=== PATIENT | female | born 1950 | race Caucasian/White ===

== ENCOUNTER 2019-06-04 18:24 | Inpatient (IN) | payer OTHER, MEDICAID ==
[~2019-06-04] VITALS: Ht 162.6 cm; Wt 71.7 kg
[2019-06-04 18:30] VITALS: BP_SYST 122
[2019-06-04] MEDS ORDERED: OMEG-47 PO (19:24)
[2019-06-04] MEDS ORDERED: ACET-2634 PO (19:24)
[2019-06-04] MEDS ORDERED: ACET-2165 PO (19:24)
[2019-06-04] MEDS ORDERED: MULT-1117 PO (19:24)
[2019-06-04] MEDS ORDERED: NA P133E41 RC (19:24)
[2019-06-04] MEDS ORDERED: CLON1TAB12 PO (19:24)
[2019-06-04] MEDS ORDERED: BISA-79 RC (19:24)
[2019-06-04] MEDS ORDERED: INSU100V7 SUBCUT (19:24)
[2019-06-04] MEDS ORDERED: CLOZ200T PO (19:24)
[2019-06-04] MEDS ORDERED: CRAN450C PO (19:24)
[2019-06-04] MEDS ORDERED: MOM PO (19:24)
[2019-06-04 19:42] LABS: HEMOGLOBIN 10.7 g/dL (12.0-16.0); RED CELL DISTRIBUTION WIDTH 17.2 % (9.0-15.0)
[2019-06-04 19:47] LABS: HEMATOCRIT 31.9 % (36-48); MEAN CORPUSCULAR HEMOGLOBIN 28 pg (27-31); MEAN CORPUSCULAR HGB CONC 34 % (32-36); MEAN CORPUSCULAR VOLUME 83 fL (79.0-98.0); PLATELET COUNT (AUTO) 415 K/uL (130-430); RED BLOOD CELL COUNT(AUTO) 3.83 MIL/uL (4.2-6.2); WHITE BLOOD COUNT (AUTO) 10.1 K/uL (4.8-10.8)
[2019-06-04 19:48] LABS: INR 1.1 (0.8-1.2); PROTHROMBIN TIME 10.7 SECS (9.5-12.5)
[2019-06-04 19:51] LABS: CALCIUM 8.8 mg/dL (8.4-11.0); CREATININE 0.58 mg/dL (0.55-1.30); POTASSIUM 3.4 mmol/L (3.5-5.1)
[2019-06-04 19:56] LABS: ALBUMIN 2.3 g/dL (3.4-4.8); TOTAL BILIRUBIN 8.6 mg/dL (0.0-1.0)
[2019-06-04 20:14] LABS: BAND % (MANUAL) 1 % (0-6)
[2019-06-04 20:15] LABS: BASOPHILS % (MANUAL) 0 % (0-2); EOSINOPHILS % (MANUAL) 1 % (0-7); LYMPHOCYTES % (MANUAL) 12 % (20-46); MONOCYTES % (MANUAL) 3 % (0-11)
[2019-06-04 20:20] LABS: BILIRUBIN,URINE 2+ (NEGATIVE); BLOOD, URINE NEGATIVE (NEGATIVE); CLARITY/URINE CLEAR (CLEAR); GLUCOSE,URINE NEGATIVE (NEGATIVE); KETONES,URINE NEGATIVE (NEGATIVE); LEUKOCYTE ESTERASE ,URINE NEGATIVE (NEGATIVE); NITRITE, URINE NEGATIVE (NEGATIVE); PH,URINE 6.5 (5.0-8.0); PROTEIN URINE NEGATIVE (NEGATIVE); UROBILINOGEN,URINE 0.2 (0.2-1.0)
[2019-06-04 20:35] LABS: COLOR,URINE AMBER (YELLOW)
[2019-06-04 20:37] LABS: BACTERIA,URINE FEW /HPF (None Seen); MUCUS,URINE None Seen /LPF (None Seen); RBC,URINE NONE SEEN /HPF (0-3); WBC,URINE 0-3 /HPF (0-3)
[2019-06-04 23:19] VITALS: BP_SYST 115
[2019-06-05] VITALS: BP_SYST 115
[2019-06-05] MEDS: 0.45% NACL 1,000 ML IV SCH ×2 (02:57→23:24)
[2019-06-05] MEDS: cefTRIAXone 1 GM IVPB PREMIX 50 ML IV SCH (03:22)
[2019-06-05] MEDS ORDERED: cefTRIAXone 1 GM IVPB PREMIX 50 ML IV ONE (03:25)
[2019-06-05 06:55] LABS: HEMATOCRIT 31.5 % (36-48); HEMOGLOBIN 10.8 g/dL (12.0-16.0); MEAN CORPUSCULAR HEMOGLOBIN 29 pg (27-31); MEAN CORPUSCULAR HGB CONC 34 % (32-36); MEAN CORPUSCULAR VOLUME 83 fL (79.0-98.0); PLATELET COUNT (AUTO) 413 K/uL (130-430); RED BLOOD CELL COUNT(AUTO) 3.79 MIL/uL (4.2-6.2); RED CELL DISTRIBUTION WIDTH 17.5 % (9.0-15.0)
[2019-06-05 06:59] LABS: CREATININE 0.53 mg/dL (0.55-1.30); POTASSIUM 3.5 mmol/L (3.5-5.1)
[2019-06-05 07:00] LABS: ALBUMIN 2.1 g/dL (3.4-4.8)
[2019-06-05 07:42] LABS: WHITE BLOOD COUNT (AUTO) 8.7 K/uL (4.8-10.8)
[2019-06-05 09:35] VITALS: BP_SYST 110
[2019-06-05 11:45] LABS: BAND % (MANUAL) 0 % (0-6)
[2019-06-05 11:46] LABS: BASOPHILS % (MANUAL) 0 % (0-2); EOSINOPHILS % (MANUAL) 5 % (0-7); MONOCYTES % (MANUAL) 23 % (0-11)
[2019-06-05 11:47] LABS: ATYPICAL LYMPHOCYTES % 10 % (0-0); LYMPHOCYTES % (MANUAL) 50 % (20-46)
[2019-06-05] MEDS ORDERED: DIATR MEGLU/DIATRIZ SOD 30 ML SOLUTION PO ONE (12:21)
[2019-06-05 12:29] VITALS: BP_SYST 115
[2019-06-05] MEDS ORDERED: IOHEXOL 100 ML IV ONE (15:03)
[2019-06-05 16:03] VITALS: BP_SYST 131
[2019-06-05 20:10] VITALS: BP_SYST 102
[2019-06-06] MEDS: ONDANSETRON HCL 4 MG/2 ML VIAL IVP PRN ×3 (01:24→23:17)
[2019-06-06] MEDS ORDERED: cefTRIAXone 1 GM VIAL ONE (02:37)
[2019-06-06] MEDS: cefTRIAXone 1 GM IVPB PREMIX 50 ML IV SCH (02:44)
[2019-06-06 07:19] LABS: HEMATOCRIT 33.3 % (36-48); HEMOGLOBIN 11.1 g/dL (12.0-16.0); MEAN CORPUSCULAR HEMOGLOBIN 28 pg (27-31); MEAN CORPUSCULAR HGB CONC 33 % (32-36); MEAN CORPUSCULAR VOLUME 83 fL (79.0-98.0); PLATELET COUNT (AUTO) 438 K/uL (130-430); RED BLOOD CELL COUNT(AUTO) 3.99 MIL/uL (4.2-6.2); RED CELL DISTRIBUTION WIDTH 17.1 % (9.0-15.0)
[2019-06-06 07:20] LABS: INR 1.2 (0.8-1.2)
[2019-06-06 07:45] LABS: ALANINE AMINOTRANSFERASE 141 U/L (12-78); ALBUMIN 2.2 g/dL (3.4-4.8); ANION GAP 11 (5-15); ASPARTATE AMINOTRANSFERASE 117 U/L (10-37); CALCIUM 8.8 mg/dL (8.4-11.0); CHLORIDE 99 mmol/L (98-107); CREATININE 0.49 mg/dL (0.55-1.30); GLUCOSE 135 mg/dL (70-99); LIPASE 128 U/L (73-393); POTASSIUM 3.5 mmol/L (3.5-5.1); SODIUM SERUM 133 mmol/L (136-145); TOTAL BILIRUBIN 10.2 mg/dL (0.0-1.0); UREA NITROGEN, BLOOD 18 mg/dL (8-21)
[2019-06-06 07:46] LABS: ACETAMINOPHEN < 1 ug/mL (1-30); GFR AFRICAN AMERICAN 161 mL/min (>90)
[2019-06-06 07:50] VITALS: BP_SYST 113
[2019-06-06 11:12] LABS: ATYPICAL LYMPHOCYTES % 2 % (0-0); BAND % (MANUAL) 0 % (0-6); BASOPHILS % (MANUAL) 0 % (0-2); EOSINOPHILS % (MANUAL) 1 % (0-7); LYMPHOCYTES % (MANUAL) 52 % (20-46); MONOCYTES % (MANUAL) 15 % (0-11)
[2019-06-06 11:44] VITALS: BP_SYST 112
[2019-06-06 16:00] VITALS: BP_SYST 131
[2019-06-06] MEDS ORDERED: MILK OF MAGNESIA 30 ML UDC PO PRN (19:00)
[2019-06-06] MEDS ORDERED: ACETAMINOPHEN 325 MG TABLET PO PRN (19:00)
[2019-06-06] MEDS ORDERED: ACETAMINOPHEN 500 MG TABLET PO PRN (19:00)
[2019-06-06] MEDS ORDERED: BISACODYL 5 MG TABLET.DR (DULCOLAX) PO PRN (19:00)
[2019-06-06 19:47] VITALS: BP_SYST 90
[2019-06-06 21:00] VITALS: BP_SYST 127
[2019-06-06] MEDS ORDERED: CLOZAPINE PO SCH (21:00)
[2019-06-06] MEDS ORDERED: NON-FORMULARY MEDICATION (Cranberry Fruit Concentrate (Cranberry) 450 MG) PO SCH (21:00)
[2019-06-06] MEDS: 0.45% NACL 1,000 ML IV SCH (21:39)
[2019-06-06] MEDS: clonazePAM 0.5 MG TABLET PO SCH (21:58)
[2019-06-06] MEDS ORDERED: MAGNESIUM CITRATE 300 ML ORAL SOLUTION PO SCH (22:00)
[2019-06-06] MEDS ORDERED: KCL 20 mEq in D5/0.45NS 1000mL 1,000 ML IV SCH (22:30)
[2019-06-07] VITALS: BP_SYST 129
[2019-06-07] MEDS: cefTRIAXone 1 GM IVPB PREMIX 50 ML IV SCH ×2 (01:01→23:45)
[2019-06-07 04:00] VITALS: BP_SYST 138
[2019-06-07] MEDS ORDERED: cefTRIAXone 1 GM VIAL ONE (04:46)
[2019-06-07 07:30] LABS: ALBUMIN 2.1 g/dL (3.4-4.8); CALCIUM 8.8 mg/dL (8.4-11.0); CREATININE 0.44 mg/dL (0.55-1.30); POTASSIUM 3.3 mmol/L (3.5-5.1); TOTAL BILIRUBIN 11.1 mg/dL (0.0-1.0)
[2019-06-07 07:32] LABS: HEMATOCRIT 31.3 % (36-48); HEMOGLOBIN 10.7 g/dL (12.0-16.0); MEAN CORPUSCULAR HEMOGLOBIN 28 pg (27-31); MEAN CORPUSCULAR HGB CONC 34 % (32-36); MEAN CORPUSCULAR VOLUME 83 fL (79.0-98.0); PLATELET COUNT (AUTO) 405 K/uL (130-430); RED BLOOD CELL COUNT(AUTO) 3.79 MIL/uL (4.2-6.2); RED CELL DISTRIBUTION WIDTH 17.2 % (9.0-15.0)
[2019-06-07 08:08] LABS: WHITE BLOOD COUNT (AUTO) 8.7 K/uL (4.8-10.8)
[2019-06-07 09:02] VITALS: BP_SYST 126
[2019-06-07 09:36] LABS: ATYPICAL LYMPHOCYTES % 5 % (0-0); BAND % (MANUAL) 0 % (0-6); BASOPHILS % (MANUAL) 0 % (0-2); EOSINOPHILS % (MANUAL) 2 % (0-7); LYMPHOCYTES % (MANUAL) 20 % (20-46); MONOCYTES % (MANUAL) 8 % (0-11)
[2019-06-07 12:56] VITALS: BP_SYST 107
[2019-06-07] MEDS: MULTIVITAMINS TAB 1 TABLET PO SCH (16:01)
[2019-06-07] MEDS: clonazePAM 0.5 MG TABLET PO SCH ×2 (16:01→21:04)
[2019-06-07] MEDS: OMEGA-3/DHA/EPA/FISH OIL 1 GM CAPSULE PO SCH (16:01)
[2019-06-07 16:51] VITALS: BP_SYST 116
[2019-06-07 20:00] VITALS: BP_SYST 121
[2019-06-07] MEDS: 0.45% NACL 1,000 ML IV SCH (21:04)
[2019-06-07] MEDS ORDERED: cefTRIAXone 1 GM IVPB PREMIX 50 ML IV ONE (23:39)
[2019-06-08 00:06] VITALS: BP_SYST 136
[2019-06-08 03:06] LABS: HEPATITIS A AB, IgM Negative (Negative); HEPATITIS B CORE AB, IgM Negative (Negative); HEPATITIS B SURFACE AG Negative (Negative)
[2019-06-08 07:31] LABS: INR 1.1 (0.8-1.2); PROTHROMBIN TIME 11.4 SECS (9.5-12.5)
[2019-06-08 07:45] LABS: ALBUMIN 2.1 g/dL (3.4-4.8); CALCIUM 8.5 mg/dL (8.4-11.0); CREATININE 0.44 mg/dL (0.55-1.30); POTASSIUM 3.6 mmol/L (3.5-5.1); TOTAL BILIRUBIN 10.1 mg/dL (0.0-1.0)
[2019-06-08 08:00] VITALS: BP_SYST 111
[2019-06-08 08:06] LABS: FERRITIN 61 ng/mL (15-150)
[2019-06-08 08:22] LABS: HEMOGLOBIN 10.5 g/dL (12.0-16.0); MEAN CORPUSCULAR HEMOGLOBIN 27 pg (27-31); MEAN CORPUSCULAR HGB CONC 33 % (32-36); MEAN CORPUSCULAR VOLUME 83 fL (79.0-98.0); PLATELET COUNT (AUTO) 401 K/uL (130-430); RED BLOOD CELL COUNT(AUTO) 3.85 MIL/uL (4.2-6.2); RED CELL DISTRIBUTION WIDTH 17.5 % (9.0-15.0)
[2019-06-08 08:49] LABS: WHITE BLOOD COUNT (AUTO) 7.5 K/uL (4.8-10.8)
[2019-06-08] MEDS: clonazePAM 0.5 MG TABLET PO SCH ×2 (09:00→21:05)
[2019-06-08] MEDS: 0.45% NACL 1,000 ML IV SCH (09:00)
[2019-06-08 11:08] LABS: BAND % (MANUAL) 3 % (0-6); BASOPHILS % (MANUAL) 0 % (0-2); BLASTS, MANUAL % 3 % (0-0); EOSINOPHILS % (MANUAL) 2 % (0-7); LYMPHOCYTES % (MANUAL) 20 % (20-46); MONOCYTES % (MANUAL) 20 % (0-11)
[2019-06-08 11:09] LABS: ATYPICAL LYMPHOCYTES % 40 % (0-0)
[2019-06-08 12:00] VITALS: BP_SYST 111
[2019-06-08] MEDS ORDERED: IOHEXOL 50 ML IV ONE (14:24)
[2019-06-08] MEDS ORDERED: MIDAZOLAM HCL 5 MG/5 ML VIAL IVP ONE (14:30)
[2019-06-08] MEDS ORDERED: NS IRRIG SOLN 1000 ML IR ONE (14:30)
[2019-06-08] MEDS ORDERED: ROCURONIUM BROMIDE 10 MG/ML (ZEMURON) IV ONE (14:30)
[2019-06-08] MEDS ORDERED: PROPOFOL 200MG/ 20ML VIAL (DIPRIVAN) IV ONE (14:30)
[2019-06-08] MEDS ORDERED: WATER FOR IRRIGATION,STERILE 1,000 ML IRRIG.SOLN IR ONE (14:30)
[2019-06-08] MEDS ORDERED: NEOSTIGMINE METHYLSULFATE 1 MG/ML, 10 ML VIAL IVP ONE (14:30)
[2019-06-08] MEDS ORDERED: SEVOFLURANE 15 MIN GAS INH ONE (14:30)
[2019-06-08] MEDS ORDERED: LR 1,000 ML IV.SOLN IV ONE (14:30)
[2019-06-08] MEDS ORDERED: GLYCOPYRROLATE 0.2 MG/ML VIAL IJ ONE (14:30)
[2019-06-08] MEDS ORDERED: ONDANSETRON HCL 4 MG/2 ML VIAL IVP PRN (15:30)
[2019-06-08] MEDS ORDERED: fentaNYL CITRATE/PF 100 MCG/2 ML AMP IVP PRN ×2 (15:30)
[2019-06-08 16:06] LABS: ANTI NUCLEAR AB WITH REFLEX Negative (Negative)
[2019-06-08 16:30] VITALS: BP_SYST 154
[2019-06-08] MEDS: MULTIVITAMINS TAB 1 TABLET PO SCH (18:20)
[2019-06-08] MEDS: OMEGA-3/DHA/EPA/FISH OIL 1 GM CAPSULE PO SCH (18:20)
[2019-06-08 20:00] VITALS: BP_SYST 125
[2019-06-09] VITALS: BP_SYST 110
[2019-06-09] MEDS: ONDANSETRON HCL 4 MG/2 ML VIAL IVP PRN (00:31)
[2019-06-09] MEDS: cefTRIAXone 1 GM IVPB PREMIX 50 ML IV SCH ×2 (00:44→23:59)
[2019-06-09] MEDS ORDERED: cefTRIAXone 1 GM IVPB PREMIX 50 ML IV ONE (00:51)
[2019-06-09] MEDS: 0.45% NACL 1,000 ML IV SCH (06:03)
[2019-06-09 07:25] LABS: HEMATOCRIT 32.2 % (36-48); HEMOGLOBIN 10.8 g/dL (12.0-16.0); MEAN CORPUSCULAR HEMOGLOBIN 28 pg (27-31); MEAN CORPUSCULAR HGB CONC 34 % (32-36); MEAN CORPUSCULAR VOLUME 83 fL (79.0-98.0); PLATELET COUNT (AUTO) 428 K/uL (130-430); RED CELL DISTRIBUTION WIDTH 17.1 % (9.0-15.0)
[2019-06-09 07:32] LABS: ALBUMIN 2.1 g/dL (3.4-4.8); C-REACTIVE PROTEIN QUANT 4.2 mg/dL (0-0.5); CALCIUM 8.4 mg/dL (8.4-11.0); CREATININE 0.62 mg/dL (0.55-1.30); POTASSIUM 3.5 mmol/L (3.5-5.1); TOTAL BILIRUBIN 10.5 mg/dL (0.0-1.0)
[2019-06-09 08:00] VITALS: BP_SYST 113
[2019-06-09 08:02] LABS: WHITE BLOOD COUNT (AUTO) 11.1 K/uL (4.8-10.8)
[2019-06-09] MEDS: OMEGA-3/DHA/EPA/FISH OIL 1 GM CAPSULE PO SCH (09:26)
[2019-06-09] MEDS: MULTIVITAMINS TAB 1 TABLET PO SCH (09:26)
[2019-06-09] MEDS: clonazePAM 0.5 MG TABLET PO SCH ×2 (09:26→21:00)
[2019-06-09 12:00] VITALS: BP_SYST 112
[2019-06-09 12:06] LABS: BASOPHILS % (MANUAL) 0 % (0-2)
[2019-06-09 12:10] LABS: ANTI-SMOOTH MUSCLE AB 10 Units (0-19)
[2019-06-09 16:00] VITALS: BP_SYST 123
[2019-06-09] MEDS: CLOZAPINE 100 MG PO SCH (21:00)
[2019-06-10] MEDS: INSULIN REGULAR, HUMAN 100 UNITS/ML, 10 ML VIAL (humuLIN R) SUBCUT PRN ×3 (00:01→18:20)
[2019-06-10 00:19] VITALS: BP_SYST 108
[2019-06-10] MEDS: 0.45% NACL 1,000 ML IV SCH (00:59)
[2019-06-10 07:55] VITALS: BP_SYST 107
[2019-06-10 07:58] LABS: CALCIUM 8.5 mg/dL (8.4-11.0); CREATININE 0.46 mg/dL (0.55-1.30); POTASSIUM 3.2 mmol/L (3.5-5.1); TOTAL BILIRUBIN 10.4 mg/dL (0.0-1.0)
[2019-06-10 08:06] LABS: AFP, TUMOR MARKER 3.7 ng/mL (0.0-8.3)
[2019-06-10 08:10] LABS: HEMATOCRIT 30.1 % (36-48); MEAN CORPUSCULAR HEMOGLOBIN 28 pg (27-31); MEAN CORPUSCULAR HGB CONC 33 % (32-36); MEAN CORPUSCULAR VOLUME 83 fL (79.0-98.0); PLATELET COUNT (AUTO) 403 K/uL (130-430); RED BLOOD CELL COUNT(AUTO) 3.64 MIL/uL (4.2-6.2); RED CELL DISTRIBUTION WIDTH 17.3 % (9.0-15.0); WHITE BLOOD COUNT (AUTO) 14.5 K/uL (4.8-10.8)
[2019-06-10] MEDS: clonazePAM 0.5 MG TABLET PO SCH ×2 (08:39→21:00)
[2019-06-10] MEDS: MULTIVITAMINS TAB 1 TABLET PO SCH (08:39)
[2019-06-10] MEDS: OMEGA-3/DHA/EPA/FISH OIL 1 GM CAPSULE PO SCH (08:39)
[2019-06-10] MEDS ORDERED: POTASSIUM CHLORIDE 20 MEQ TAB.PRT.SR PO ONE (09:00)
[2019-06-10 10:01] LABS: BASOPHILS % (MANUAL) 0 % (0-2)
[2019-06-10 10:51] LABS: ATYPICAL LYMPHOCYTES % 6 % (0-0); BAND % (MANUAL) 1 % (0-6); EOSINOPHILS % (MANUAL) 2 % (0-7); LYMPHOCYTES % (MANUAL) 12 % (20-46); MONOCYTES % (MANUAL) 9 % (0-11)
[2019-06-10 10:52] LABS: METAMYELOCYTES % 0 % (0-0)
[2019-06-10 11:13] LABS: BAND % (MANUAL) 3 % (0-6)
[2019-06-10 11:14] LABS: ATYPICAL LYMPHOCYTES % 3 % (0-0); EOSINOPHILS % (MANUAL) 1 % (0-7); LYMPHOCYTES % (MANUAL) 13 % (20-46); MONOCYTES % (MANUAL) 6 % (0-11)
[2019-06-10 11:25] LABS: CEA 6.6 ng/mL (0.0-4.7)
[2019-06-10 11:26] LABS: ALPHA-1-ANTITRYPSIN, S 203 mg/dL (101-187)
[2019-06-10 12:30] VITALS: BP_SYST 103
[2019-06-10 16:20] VITALS: BP_SYST 110
[2019-06-10 19:57] VITALS: BP_SYST 110
[2019-06-10] MEDS: CLOZAPINE 100 MG PO SCH (21:00)
[2019-06-11] MEDS: cefTRIAXone 1 GM IVPB PREMIX 50 ML IV SCH
[2019-06-11] MEDS ORDERED: cefTRIAXone 1 GM VIAL ONE (02:10)
[2019-06-11 02:13] VITALS: BP_SYST 118
[2019-06-11] MEDS: 0.45% NACL 1,000 ML IV SCH ×2 (05:47→17:00)
[2019-06-11 07:18] LABS: HEMATOCRIT 29.5 % (36-48); HEMOGLOBIN 9.7 g/dL (12.0-16.0); MEAN CORPUSCULAR HEMOGLOBIN 27 pg (27-31); MEAN CORPUSCULAR HGB CONC 33 % (32-36); MEAN CORPUSCULAR VOLUME 83 fL (79.0-98.0); PLATELET COUNT (AUTO) 414 K/uL (130-430); RED BLOOD CELL COUNT(AUTO) 3.57 MIL/uL (4.2-6.2); RED CELL DISTRIBUTION WIDTH 17.1 % (9.0-15.0); WHITE BLOOD COUNT (AUTO) 15.4 K/uL (4.8-10.8)
[2019-06-11 07:48] LABS: ALBUMIN 1.8 g/dL (3.4-4.8); CALCIUM 8.5 mg/dL (8.4-11.0); CREATININE 0.46 mg/dL (0.55-1.30); POTASSIUM 3.8 mmol/L (3.5-5.1)
[2019-06-11 08:00] VITALS: BP_SYST 123
[2019-06-11 08:42] LABS: ATYPICAL LYMPHOCYTES % 2 % (0-0); BAND % (MANUAL) 4 % (0-6); BASOPHILS % (MANUAL) 0 % (0-2); EOSINOPHILS % (MANUAL) 8 % (0-7); LYMPHOCYTES % (MANUAL) 13 % (20-46); MONOCYTES % (MANUAL) 7 % (0-11)
[2019-06-11] MEDS: clonazePAM 0.5 MG TABLET PO SCH ×2 (10:20→20:57)
[2019-06-11] MEDS: OMEGA-3/DHA/EPA/FISH OIL 1 GM CAPSULE PO SCH (10:20)
[2019-06-11] MEDS: MULTIVITAMINS TAB 1 TABLET PO SCH (10:20)
[2019-06-11 12:30] VITALS: BP_SYST 119
[2019-06-11] MEDS: INSULIN REGULAR, HUMAN 100 UNITS/ML, 10 ML VIAL (humuLIN R) SUBCUT PRN ×2 (12:33→18:07)
[2019-06-11 16:00] VITALS: BP_SYST 121
[2019-06-11 20:00] VITALS: BP_SYST 124
[2019-06-11] MEDS: CLOZAPINE 100 MG PO SCH (20:58)
[2019-06-12] MEDS: INSULIN REGULAR, HUMAN 100 UNITS/ML, 10 ML VIAL (humuLIN R) SUBCUT PRN (00:02)
[2019-06-12 00:37] VITALS: BP_SYST 118
== END 2019-06-12 23:00 | disposition short-term general hospital (02) | DRG 444 ==
LOC: SED 18:24 → SMU 21:41 → SED 23:01
PROVIDERS: ADMIT Internal Medicine; ATTEND Internal Medicine
PROC: BF131ZZ Fluoroscopy of Gallbladder and Bile Ducts using Low Osmolar Contrast (ICD-10-PCS; 2019-06-08)
PROC: 0FD Hepatobiliary System and Pancreas, Extraction (ICD-10-PCS; 2019-06-08)
PROC: 0F798DZ Dilation of Common Bile Duct with Intraluminal Device, Via Natural or Artificial Opening Endoscopic (ICD-10-PCS; principal; 2019-06-08 14:30)
DX: K83.1 Obstruction of bile duct (principal); E43 Unspecified severe protein-calorie malnutrition; G93.41 Metabolic encephalopathy; K83.09 Other cholangitis; E87.1 Hypo-osmolality and hyponatremia; K59.00 Constipation, unspecified; E11.9 Type 2 diabetes mellitus without complications; D64.9 Anemia, unspecified; I51.7 Cardiomegaly; K83.8 Other specified diseases of biliary tract; E87.6 Hypokalemia; Z79.899 Other long term (current) drug therapy; Z79.4 Long term (current) use of insulin; Z88.8 Allergy status to other drugs, medicaments and biological substances; K81.9 Cholecystitis, unspecified
CPT/HCPCS: 36415; 54032; 70450-TC; 71045; 74181; 74330-TC; 76000; 76700-TC; 80053; 80074; 81000-TC; 82103; 82105; 82140-TC; 82248-TC; 82378; 82728; 82962; 83516; 83605; 83615-TC; 83690-TC; 85007; 85027; 85610-TC; 85730-TC; 86038; 86140; 87040-TC; 87081; 87086; 88160; 88305; 93005; 94003; 94640; 94760; 99285; C1769; G0480; J0696; J1815; J2250; J2405; J2704; J2710; J3490; J7030; J7060; J7120; Q9964; Q9967

== ENCOUNTER 2019-06-25 08:52 | Inpatient (IN) | payer OTHER, MEDICAID ==
[~2019-06-25] VITALS: Ht 162.6 cm; Wt 65.8 kg
[~2019-06-25 08:52] MED LIST: ACET-2165 PO; ACET-2634 PO; BISA-79 RC; CLON1TAB12 PO; CLOZ200T PO; CRAN450C PO; INSU100V7 SUBCUT; MOM PO; MULT-1117 PO; NA P133E41 RC; OMEG-47 PO
[2019-06-25] MEDS: NACL 0.9% 1,000 ML IV SCH (15:35)
[2019-06-26] MEDS: NACL 0.9% 1,000 ML IV SCH ×3 (01:35→21:35)
[2019-06-26] MEDS ORDERED: SODIUM CHLORIDE 3% *HI-ALERT* 500 ML IV ONE (15:45)
[2019-06-26] MEDS ORDERED: POTASSIUM CHLORIDE 30 MEQ in NS 250 ML IV ONE (15:45)
[2019-06-26] MEDS ORDERED: DEXTROSE 50%-WATER 50 ML DISP.SYRIN IVP PRN (15:45)
[2019-06-26] MEDS ORDERED: GLUCOSE 15 GM GEL (in 37.5 GM TUBE) PO PRN (15:45)
[2019-06-26] MEDS ORDERED: D5W 1,000 ML IV PRN (15:45)
[2019-06-26] MEDS: VANCOMYCIN HCL 1,500 MG in NS 250 ML IV SCH (17:36)
[2019-06-26] MEDS: INSULIN REGULAR, HUMAN 100 UNITS/ML, 10 ML VIAL (humuLIN R) SUBCUT PRN (17:37)
[2019-06-26 20:00] VITALS: BP_SYST 108
[2019-06-26 21:00] VITALS: BP_SYST 110
[2019-06-26 22:00] VITALS: BP_SYST 118
[2019-06-26 23:00] VITALS: BP_SYST 111
[2019-06-27] VITALS (21 sets, daily range): BP systolic 90–143
[2019-06-27] MEDS: PIPERACILLIN/TAZO 3.375/DEX-IS 50 ML IV SCH ×3 (06:31→22:52)
[2019-06-27 07:16] LABS: BASOPHILS # (AUTO) 0.1 K/uL (0.0-0.2); EOSINOPHILS # (AUTO) 0.6 K/uL (0.0-0.4); HEMATOCRIT 27.7 % (36-48); LYMPHOCYTES # (AUTO) 2.5 K/uL (1.0-5.5); LYMPHOCYTES % (AUTO) 17.2 % (20.5-51.5); MEAN CORPUSCULAR HEMOGLOBIN 26 pg (27-31); MEAN CORPUSCULAR HGB CONC 32 % (32-36); MEAN CORPUSCULAR VOLUME 80 fL (79.0-98.0); MONOCYTES # (AUTO) 1.5 K/uL (0.0-1.0); MONOCYTES % (AUTO) 10.4 % (1.7-9.3); NEUTROPHILS # (AUTO) 9.7 K/uL (1.8-7.7); NEUTROPHILS % (AUTO) 67.4 % (40.0-70.0); PLATELET COUNT (AUTO) 519 K/uL (130-430); RED BLOOD CELL COUNT(AUTO) 3.46 MIL/uL (4.2-6.2); RED CELL DISTRIBUTION WIDTH 15.8 % (9.0-15.0); WHITE BLOOD COUNT (AUTO) 14.4 K/uL (4.8-10.8)
[2019-06-27 07:29] LABS: ALBUMIN 1.7 g/dL (3.4-4.8); BILIRUBIN,DIRECT 3.7 mg/dL (0.0-0.3); CALCIUM 8.1 mg/dL (8.4-11.0); CREATININE 0.55 mg/dL (0.55-1.30); POTASSIUM 3.5 mmol/L (3.5-5.1); TOTAL BILIRUBIN 4.1 mg/dL (0.0-1.0)
[2019-06-27] MEDS: NACL 0.9% 1,000 ML IV SCH ×2 (07:35→17:35)
[2019-06-27 09:04] LABS: INR 1.1 (0.8-1.2)
[2019-06-27] MEDS: PANTOPRAZOLE SODIUM 40 MG/VIAL (PROTONIX) IVP SCH (09:10)
[2019-06-27] MEDS: INSULIN REGULAR, HUMAN 100 UNITS/ML, 10 ML VIAL (humuLIN R) SUBCUT PRN ×2 (11:16→16:06)
[2019-06-27] MEDS ORDERED: ONDANSETRON HCL 4 MG/2 ML VIAL IVP PRN ×2 (13:00→17:00)
[2019-06-27] MEDS ORDERED: ONDANSETRON HCL 4 MG/2 ML VIAL ONE (14:46)
[2019-06-27] MEDS: VANCOMYCIN HCL 1,500 MG in NS 250 ML IV SCH (16:38)
[2019-06-28 01:48] VITALS: BP_SYST 115
[2019-06-28] MEDS: PIPERACILLIN/TAZO 3.375/DEX-IS 50 ML IV SCH ×3 (06:55→21:49)
[2019-06-28] MEDS: NACL 0.9% 1,000 ML IV SCH ×3 (07:00→21:42)
[2019-06-28 07:14] LABS: BASOPHILS # (AUTO) 0.1 K/uL (0.0-0.2); BASOPHILS % (AUTO) 0.9 % (0.0-2.0); EOSINOPHILS # (AUTO) 0.9 K/uL (0.0-0.4); EOSINOPHILS % (AUTO) 6.4 % (0.0-4.0); HEMATOCRIT 28.1 % (36-48); HEMOGLOBIN 9.2 g/dL (12.0-16.0); LYMPHOCYTES % (AUTO) 20.7 % (20.5-51.5); MEAN CORPUSCULAR HEMOGLOBIN 26 pg (27-31); MEAN CORPUSCULAR HGB CONC 33 % (32-36); MEAN CORPUSCULAR VOLUME 80 fL (79.0-98.0); MONOCYTES # (AUTO) 1.2 K/uL (0.0-1.0); MONOCYTES % (AUTO) 8.1 % (1.7-9.3); NEUTROPHILS # (AUTO) 9.4 K/uL (1.8-7.7); NEUTROPHILS % (AUTO) 63.9 % (40.0-70.0); PLATELET COUNT (AUTO) 511 K/uL (130-430); RED CELL DISTRIBUTION WIDTH 16.2 % (9.0-15.0); WHITE BLOOD COUNT (AUTO) 14.7 K/uL (4.8-10.8)
[2019-06-28 07:29] LABS: CALCIUM 8.5 mg/dL (8.4-11.0); CREATININE 0.5 mg/dL (0.55-1.30); POTASSIUM 3.7 mmol/L (3.5-5.1)
[2019-06-28 08:00] VITALS: BP_SYST 91
[2019-06-28] MEDS: PANTOPRAZOLE SODIUM 40 MG/VIAL (PROTONIX) IVP SCH (09:08)
[2019-06-28] MEDS ORDERED: PANTOPRAZOLE SODIUM 40 MG/VIAL (PROTONIX) ONE (09:09)
[2019-06-28 11:31] VITALS: BP_SYST 104
[2019-06-28 15:30] VITALS: BP_SYST 91
[2019-06-28] MEDS: VANCOMYCIN HCL 1,500 MG in NS 250 ML IV SCH (16:52)
[2019-06-28 20:00] VITALS: BP_SYST 128
[2019-06-29] VITALS: BP_SYST 109
[2019-06-29] MEDS: PIPERACILLIN/TAZO 3.375/DEX-IS 50 ML IV SCH ×2 (05:08→14:40)
[2019-06-29 07:19] LABS: BASOPHILS # (AUTO) 0.2 K/uL (0.0-0.2); BASOPHILS % (AUTO) 1.1 % (0.0-2.0); EOSINOPHILS # (AUTO) 0.8 K/uL (0.0-0.4); EOSINOPHILS % (AUTO) 5.8 % (0.0-4.0); HEMATOCRIT 27.3 % (36-48); HEMOGLOBIN 8.8 g/dL (12.0-16.0); LYMPHOCYTES # (AUTO) 2.4 K/uL (1.0-5.5); LYMPHOCYTES % (AUTO) 17.1 % (20.5-51.5); MEAN CORPUSCULAR HEMOGLOBIN 26 pg (27-31); MEAN CORPUSCULAR HGB CONC 32 % (32-36); MEAN CORPUSCULAR VOLUME 81 fL (79.0-98.0); MONOCYTES # (AUTO) 0.9 K/uL (0.0-1.0); MONOCYTES % (AUTO) 6.6 % (1.7-9.3); NEUTROPHILS # (AUTO) 9.8 K/uL (1.8-7.7); NEUTROPHILS % (AUTO) 69.4 % (40.0-70.0); PLATELET COUNT (AUTO) 494 K/uL (130-430); RED BLOOD CELL COUNT(AUTO) 3.38 MIL/uL (4.2-6.2); WHITE BLOOD COUNT (AUTO) 14.1 K/uL (4.8-10.8)
[2019-06-29 08:00] VITALS: BP_SYST 132
[2019-06-29] MEDS: PANTOPRAZOLE SODIUM 40 MG/VIAL (PROTONIX) IVP SCH (09:38)
[2019-06-29] MEDS: NACL 0.9% 1,000 ML IV SCH (09:39)
[2019-06-29 10:25] LABS: BILIRUBIN,DIRECT 3.1 mg/dL (0.0-0.3); TOTAL BILIRUBIN 3.7 mg/dL (0.0-1.0)
[2019-06-29 10:26] LABS: ALBUMIN 1.7 g/dL (3.4-4.8)
[2019-06-29 11:35] VITALS: BP_SYST 114
[2019-06-29] MEDS: INSULIN REGULAR, HUMAN 100 UNITS/ML, 10 ML VIAL (humuLIN R) SUBCUT PRN ×2 (11:35→17:20)
[2019-06-29 15:41] VITALS: BP_SYST 111
[2019-06-29] MEDS: VANCOMYCIN HCL 1,500 MG in NS 250 ML IV SCH (17:21)
[2019-06-29 18:18] VITALS: BP_SYST 111
[2019-07-16 13:31] LABS: POTASSIUM 3.7 mmol/L (3.5-5.1)
[2019-07-16 13:32] LABS: ALBUMIN 1.8 g/dL (3.4-4.8); CALCIUM 7.8 mg/dL (8.4-11.0); CREATININE 0.62 mg/dL (0.55-1.30); TOTAL BILIRUBIN 5.1 mg/dL (0.0-1.0)
[2019-07-16 13:33] LABS: HEMOGLOBIN 9.4 g/dL (12.0-16.0); MEAN CORPUSCULAR VOLUME 80 fL (79.0-98.0); RED BLOOD CELL COUNT(AUTO) 3.58 MIL/uL (4.2-6.2); WHITE BLOOD COUNT (AUTO) 16.3 K/uL (4.8-10.8)
[2019-07-16 13:34] LABS: BASOPHILS # (AUTO) 0.1 K/uL (0.0-0.2); BASOPHILS % (AUTO) 0.8 % (0.0-2.0); EOSINOPHILS # (AUTO) 0.3 K/uL (0.0-0.4); EOSINOPHILS % (AUTO) 1.6 % (0.0-4.0); MEAN CORPUSCULAR HEMOGLOBIN 26 pg (27-31); MEAN CORPUSCULAR HGB CONC 33 % (32-36); MONOCYTES # (AUTO) 1.4 K/uL (0.0-1.0); MONOCYTES % (AUTO) 8.3 % (1.7-9.3); NEUTROPHILS # (AUTO) 12.6 K/uL (1.8-7.7); NEUTROPHILS % (AUTO) 77.3 % (40.0-70.0); PLATELET COUNT (AUTO) 616 K/uL (130-430); RED CELL DISTRIBUTION WIDTH 16.1 % (9.0-15.0)
[2019-07-16 13:35] LABS: CLARITY/URINE CLEAR (CLEAR); COLOR,URINE YELLOW (YELLOW); GLUCOSE,URINE NEGATIVE (NEGATIVE); KETONES,URINE NEGATIVE (NEGATIVE); PROTEIN URINE TRACE (NEGATIVE)
[2019-07-16 13:36] LABS: BILIRUBIN,URINE 2+ (NEGATIVE); BLOOD, URINE 2+ (NEGATIVE); LEUKOCYTE ESTERASE ,URINE NEGATIVE (NEGATIVE); NITRITE, URINE NEGATIVE (NEGATIVE); UROBILINOGEN,URINE 0.2 (0.2-1.0)
[2019-07-16 13:39] LABS: BACTERIA,URINE FEW /HPF (None Seen); HYALINE CASTS, URINE 0-10 /LPF (None Seen); WBC,URINE 0-3 /HPF (0-3)
[2019-07-16 13:42] LABS: POTASSIUM 2.9 mmol/L (3.5-5.1)
[2019-07-16 13:43] LABS: CREATININE 0.56 mg/dL (0.55-1.30)
[2019-07-16 14:30] LABS: POTASSIUM 3.5 mmol/L (3.5-5.1)
[2019-07-16 14:31] LABS: CALCIUM 8.9 mg/dL (8.4-11.0); CREATININE 0.67 mg/dL (0.55-1.30)
[2019-07-16 14:32] LABS: ALBUMIN 2.7 g/dL (3.4-4.8)
[2019-07-16 14:33] LABS: INR 1.1 (0.8-1.2); PROTHROMBIN TIME 11.4 SECS (9.5-12.5)
[2019-07-16 14:34] LABS: HEMOGLOBIN 12.2 g/dL (12.0-16.0); MEAN CORPUSCULAR HEMOGLOBIN 27 pg (27-31); MEAN CORPUSCULAR HGB CONC 34 % (32-36); MEAN CORPUSCULAR VOLUME 78 fL (79.0-98.0); RED BLOOD CELL COUNT(AUTO) 4.56 MIL/uL (4.2-6.2); RED CELL DISTRIBUTION WIDTH 15.7 % (9.0-15.0); WHITE BLOOD COUNT (AUTO) 21.5 K/uL (4.8-10.8)
[2019-07-16 14:35] LABS: BASOPHILS # (AUTO) 0.1 K/uL (0.0-0.2); BASOPHILS % (AUTO) 0.4 % (0.0-2.0); EOSINOPHILS % (AUTO) 0.2 % (0.0-4.0); LYMPHOCYTES # (AUTO) 1.6 K/uL (1.0-5.5); LYMPHOCYTES % (AUTO) 7.3 % (20.5-51.5); MONOCYTES # (AUTO) 1.5 K/uL (0.0-1.0); MONOCYTES % (AUTO) 6.9 % (1.7-9.3); NEUTROPHILS # (AUTO) 18.3 K/uL (1.8-7.7); NEUTROPHILS % (AUTO) 85.2 % (40.0-70.0); PLATELET COUNT (AUTO) 826 K/uL (130-430)
[2019-07-16 14:37] LABS: CLARITY/URINE HAZY (CLEAR); COLOR,URINE GREEN (YELLOW)
[2019-07-16 14:38] LABS: BILIRUBIN,URINE 2+ (NEGATIVE); BLOOD, URINE NEGATIVE (NEGATIVE); GLUCOSE,URINE NEGATIVE (NEGATIVE); KETONES,URINE NEGATIVE (NEGATIVE); LEUKOCYTE ESTERASE ,URINE TRACE (NEGATIVE); NITRITE, URINE NEGATIVE (NEGATIVE); PH,URINE 5.5 (5.0-8.0); PROTEIN URINE 1+ (NEGATIVE)
[2019-07-16 14:42] LABS: BACTERIA,URINE FEW /HPF (None Seen); RBC,URINE 0-3 /HPF (0-3)
[2019-07-16 14:43] LABS: MUCUS,URINE 1+ /LPF (None Seen)
== END 2019-06-29 21:25 | DRG 444 ==
LOC: SED 08:52 → SIC 11:40 → STU 06-27 19:37
PROVIDERS: ADMIT Internal Medicine; ATTEND Internal Medicine
PROC: 02HV33Z Insertion of Infusion Device into Superior Vena Cava, Percutaneous Approach (ICD-10-PCS; principal; 2019-06-25)
PROC: B548ZZA Ultrasonography of Superior Vena Cava, Guidance (ICD-10-PCS; 2019-06-25)
DX: K83.09 Other cholangitis (principal); K83.1 Obstruction of bile duct; E87.1 Hypo-osmolality and hyponatremia; C22.1 Intrahepatic bile duct carcinoma; R64 Cachexia; F20.9 Schizophrenia, unspecified; D63.8 Anemia in other chronic diseases classified elsewhere; I10 Essential (primary) hypertension; E78.5 Hyperlipidemia, unspecified; Z85.05 Personal history of malignant neoplasm of liver; Z85.09 Personal history of malignant neoplasm of other digestive organs; Z88.8 Allergy status to other drugs, medicaments and biological substances; Z79.899 Other long term (current) drug therapy
CPT/HCPCS: 36415; 36600; 71045; 80048; 80053; 80076; 81000-TC; 82140-TC; 82803-TC; 82962; 83605; 83735-TC; 84484; 85025; 85610-TC; 85730-TC; 86886; 86900; 86901; 87070-TC; 87075-TC; 87186-TC; 93005; 96365; 96375; 99285; C9113; G0378; J1815; J2405; J2543; J3370; J3480; J3490; J7030; J7050

== ENCOUNTER 2019-07-01 19:13 | Inpatient (IN) | payer OTHER, MEDICAID ==
[~2019-07-01] VITALS: Ht 162.6 cm; Wt 72.1 kg
[2019-07-01 19:20] VITALS: BP_SYST 98
[2019-07-01] MEDS ORDERED: NACL 0.9% 1,000 ML IV ONE (19:51)
[2019-07-01 20:42] LABS: BLOOD, URINE 2+ (NEGATIVE); CLARITY/URINE CLEAR (CLEAR); COLOR,URINE YELLOW (YELLOW); GLUCOSE,URINE NEGATIVE (NEGATIVE); KETONES,URINE NEGATIVE (NEGATIVE); LEUKOCYTE ESTERASE ,URINE TRACE (NEGATIVE); NITRITE, URINE NEGATIVE (NEGATIVE); PH,URINE 6.5 (5.0-8.0); PROTEIN URINE 1+ (NEGATIVE); UROBILINOGEN,URINE 0.2 (0.2-1.0)
[2019-07-01 20:48] LABS: BACTERIA,URINE RARE /HPF (None Seen); BILIRUBIN,URINE 2+ (NEGATIVE)
[2019-07-01 20:49] LABS: MUCUS,URINE None Seen /LPF (None Seen); YEAST,URINE Many /HPF (None Seen)
[2019-07-01 21:17] LABS: BASOPHILS % (AUTO) 0.3 % (0.0-2.0); EOSINOPHILS # (AUTO) 0.1 K/uL (0.0-0.4); EOSINOPHILS % (AUTO) 0.6 % (0.0-4.0); HEMOGLOBIN 8.3 g/dL (12.0-16.0); LYMPHOCYTES # (AUTO) 1.6 K/uL (1.0-5.5); LYMPHOCYTES % (AUTO) 10.5 % (20.5-51.5); MEAN CORPUSCULAR HEMOGLOBIN 26 pg (27-31); MEAN CORPUSCULAR HGB CONC 33 % (32-36); MEAN CORPUSCULAR VOLUME 78 fL (79.0-98.0); MONOCYTES # (AUTO) 0.9 K/uL (0.0-1.0); MONOCYTES % (AUTO) 5.9 % (1.7-9.3); NEUTROPHILS # (AUTO) 12.3 K/uL (1.8-7.7); NEUTROPHILS % (AUTO) 82.7 % (40.0-70.0); PLATELET COUNT (AUTO) 335 K/uL (130-430); RED CELL DISTRIBUTION WIDTH 16.5 % (9.0-15.0); WHITE BLOOD COUNT (AUTO) 14.9 K/uL (4.8-10.8)
[2019-07-01 21:31] LABS: CALCIUM 8.2 mg/dL (8.4-11.0); CREATININE 0.7 mg/dL (0.55-1.30); INR 1.2 (0.8-1.2); PROTHROMBIN TIME 12.4 SECS (9.5-12.5)
[2019-07-01 21:36] LABS: ALBUMIN 1.6 g/dL (3.4-4.8); TOTAL BILIRUBIN 6.7 mg/dL (0.0-1.0)
[2019-07-01 21:42] LABS: POTASSIUM 2.9 mmol/L (3.5-5.1)
[2019-07-01] MEDS ORDERED: PIPERACILLIN/TAZO 3.375 GM in NS 50 ML IV ONE (21:45)
[2019-07-01] MEDS ORDERED: POTASSIUM CHLORIDE 20 MEQ/PKT PACKET PO ONE (21:45)
[2019-07-01] MEDS ORDERED: PIPERACILLIN/TAZOBACTAM 3.375 GM/VIAL (ZOSYN) IV ONE ×2 (22:17→23:33)
[2019-07-01] MEDS ORDERED: ONDA4AMP IV (23:38)
[2019-07-01] MEDS ORDERED: MEROPENEM 1 GM IVPB PREMIX 50 ML IV SCH (23:45)
[2019-07-02] MEDS ORDERED: VANCOMYCIN HCL 1 GM/NS PREMIX 250 ML IV ONE (01:00)
[2019-07-02 02:59] VITALS: BP_SYST 126
[2019-07-02 04:00] VITALS: BP_SYST 121
[2019-07-02 05:35] LABS: BILIRUBIN,URINE 2+ (NEGATIVE); BLOOD, URINE 3+ (NEGATIVE); CLARITY/URINE CLEAR (CLEAR); COLOR,URINE YELLOW (YELLOW); GLUCOSE,URINE NEGATIVE (NEGATIVE); KETONES,URINE NEGATIVE (NEGATIVE); LEUKOCYTE ESTERASE ,URINE TRACE (NEGATIVE); NITRITE, URINE NEGATIVE (NEGATIVE); PH,URINE 5.5 (5.0-8.0); PROTEIN URINE 1+ (NEGATIVE); UROBILINOGEN,URINE 0.2 (0.2-1.0)
[2019-07-02 05:44] LABS: BACTERIA,URINE MODERATE /HPF (None Seen); RBC,URINE >100 /HPF (0-3)
[2019-07-02] MEDS ORDERED: MEROPENEM 1 GM VIAL IV ONE (05:56)
[2019-07-02] MEDS ORDERED: VANCOMYCIN HCL 1000 MG/VIAL IV ONE (05:56)
[2019-07-02 06:36] LABS: BASOPHILS # (AUTO) 0.1 K/uL (0.0-0.2); BASOPHILS % (AUTO) 0.6 % (0.0-2.0); EOSINOPHILS # (AUTO) 0.1 K/uL (0.0-0.4); EOSINOPHILS % (AUTO) 0.5 % (0.0-4.0); HEMATOCRIT 24.3 % (36-48); HEMOGLOBIN 8.1 g/dL (12.0-16.0); LYMPHOCYTES # (AUTO) 1.2 K/uL (1.0-5.5); MEAN CORPUSCULAR HEMOGLOBIN 26 pg (27-31); MEAN CORPUSCULAR HGB CONC 33 % (32-36); MEAN CORPUSCULAR VOLUME 78 fL (79.0-98.0); MONOCYTES # (AUTO) 0.7 K/uL (0.0-1.0); MONOCYTES % (AUTO) 5.2 % (1.7-9.3); NEUTROPHILS # (AUTO) 11.5 K/uL (1.8-7.7); NEUTROPHILS % (AUTO) 84.7 % (40.0-70.0); PLATELET COUNT (AUTO) 352 K/uL (130-430); RED BLOOD CELL COUNT(AUTO) 3.11 MIL/uL (4.2-6.2); RED CELL DISTRIBUTION WIDTH 16.1 % (9.0-15.0); WHITE BLOOD COUNT (AUTO) 13.5 K/uL (4.8-10.8)
[2019-07-02] MEDS: MEROPENEM 1 GM IVPB PREMIX 50 ML IV SCH ×2 (06:38→17:06)
[2019-07-02 08:00] VITALS: BP_SYST 133
[2019-07-02 08:36] LABS: ALBUMIN 1.6 g/dL (3.4-4.8); CALCIUM 7.8 mg/dL (8.4-11.0); CREATININE 0.6 mg/dL (0.55-1.30); TOTAL BILIRUBIN 6.8 mg/dL (0.0-1.0); VANCOMYCIN,RANDOM 15.4 ug/mL
[2019-07-02] MEDS: PANTOPRAZOLE SODIUM 40 MG/VIAL (PROTONIX) IVP SCH (08:51)
[2019-07-02 09:03] LABS: POTASSIUM 2.7 mmol/L (3.5-5.1)
[2019-07-02] MEDS ORDERED: POTASSIUM CHLORIDE 20 MEQ TAB.PRT.SR PO ONE ×2 (10:00→16:00)
[2019-07-02 11:21] VITALS: BP_SYST 124
[2019-07-02] MEDS ORDERED: IOHEXOL 350 mgI/mL, 150 ML INFUS..BTL IV ONE (13:55)
[2019-07-02 15:41] VITALS: BP_SYST 105
[2019-07-02 20:00] VITALS: BP_SYST 105
[2019-07-03 00:28] VITALS: BP_SYST 96
[2019-07-03] MEDS: VANCOMYCIN HCL 1,000 MG in NS 250 ML IV SCH (06:23)
[2019-07-03 07:53] VITALS: BP_SYST 117
[2019-07-03] MEDS: PANTOPRAZOLE SODIUM 40 MG/VIAL (PROTONIX) IVP SCH (08:37)
[2019-07-03 12:00] VITALS: BP_SYST 106
[2019-07-03 16:47] VITALS: BP_SYST 110
[2019-07-03] MEDS: MEROPENEM 1 GM IVPB PREMIX 50 ML IV SCH (17:29)
[2019-07-03 18:08] LABS: BASOPHILS # (AUTO) 0.1 K/uL (0.0-0.2); EOSINOPHILS # (AUTO) 0.1 K/uL (0.0-0.4); EOSINOPHILS % (AUTO) 1.5 % (0.0-4.0); HEMATOCRIT 25.3 % (36-48); HEMOGLOBIN 8.4 g/dL (12.0-16.0); LYMPHOCYTES # (AUTO) 1.8 K/uL (1.0-5.5); LYMPHOCYTES % (AUTO) 18.2 % (20.5-51.5); MEAN CORPUSCULAR HEMOGLOBIN 26 pg (27-31); MEAN CORPUSCULAR HGB CONC 33 % (32-36); MEAN CORPUSCULAR VOLUME 78 fL (79.0-98.0); MONOCYTES # (AUTO) 0.9 K/uL (0.0-1.0); MONOCYTES % (AUTO) 8.8 % (1.7-9.3); NEUTROPHILS # (AUTO) 6.8 K/uL (1.8-7.7); NEUTROPHILS % (AUTO) 70.5 % (40.0-70.0); PLATELET COUNT (AUTO) 362 K/uL (130-430); RED BLOOD CELL COUNT(AUTO) 3.26 MIL/uL (4.2-6.2); WHITE BLOOD COUNT (AUTO) 9.6 K/uL (4.8-10.8)
[2019-07-03 18:39] LABS: CALCIUM 7.6 mg/dL (8.4-11.0); CREATININE 0.56 mg/dL (0.55-1.30)
[2019-07-04 00:21] VITALS: BP_SYST 117
[2019-07-04] MEDS: MEROPENEM 1 GM IVPB PREMIX 50 ML IV SCH (06:17)
[2019-07-04] MEDS: VANCOMYCIN HCL 1,000 MG in NS 250 ML IV SCH ×2 (06:17→06:21)
[2019-07-04 07:39] VITALS: BP_SYST 111
[2019-07-04] MEDS: PANTOPRAZOLE SODIUM 40 MG/VIAL (PROTONIX) IVP SCH (08:19)
[2019-07-04 12:00] VITALS: BP_SYST 131
[2019-07-04] MEDS ORDERED: LEVOFLOXACIN 500 MG/D5W 100 ML IV SCH (12:00)
[2019-07-04] MEDS ORDERED: FLUCONAZOLE 400 mg/ NS 200 ML IV SCH (13:00)
[2019-07-04 16:30] VITALS: BP_SYST 131
[2019-07-04] MEDS ORDERED: POTASSIUM CHLORIDE 20 MEQ TAB.PRT.SR PO ONE (18:30)
[2019-07-04 18:37] VITALS: BP_SYST 131
[2019-07-04 20:00] VITALS: BP_SYST 123
== END 2019-07-04 21:30 | disposition short-term general hospital (02) | DRG 919 ==
LOC: SED 19:13 → SMU 23:42
PROVIDERS: ADMIT Internal Medicine Infectious Disease; ATTEND Internal Medicine Infectious Disease
PROC: 0F2BX0Z Change Drainage Device in Hepatobiliary Duct, External Approach (ICD-10-PCS; principal; 2019-07-03)
DX: T85.510A Breakdown (mechanical) of bile duct prosthesis, initial encounter (principal); K83.1 Obstruction of bile duct; C22.1 Intrahepatic bile duct carcinoma; K83.09 Other cholangitis; J44.9 Chronic obstructive pulmonary disease, unspecified; E11.9 Type 2 diabetes mellitus without complications; Y83.8 Other surgical procedures as the cause of abnormal reaction of the patient, or of later complication, without mention of misadventure at the time of the procedure; F20.9 Schizophrenia, unspecified; Z88.8 Allergy status to other drugs, medicaments and biological substances; Z79.4 Long term (current) use of insulin; Z79.899 Other long term (current) drug therapy; Y92.89 Other specified places as the place of occurrence of the external cause
CPT/HCPCS: 36415; 71045; 80048; 80053; 80202-TC; 81000-TC; 82962; 83605; 83735-TC; 84484; 85025; 85610-TC; 87040-TC; 87081; 87086; 93005; 99285; C9113; J1450; J1956; J2185; J2543; J3370; J7030; J7050; Q9967

== ENCOUNTER 2019-08-23 19:18 | Inpatient (IN) | payer OTHER, MEDICAID ==
[~2019-08-23] VITALS: Ht 162.6 cm; Wt 63.0 kg
[2019-08-23 19:18] VITALS: BP_SYST 112
[~2019-08-23 19:18] MED LIST changes: +ONDA4AMP IV
--- NOTE | 2019-08-23 19:18 | NUR ---
Pt sent from [facility] r/t abnormal labs, WBC 16.8, Hgb 7.4. Per EMS, pt is not oxygen dependent, but placed on O2 at 2 LPM/NC r/t desaturation to 91% in route. Pt AAOx2, even and non-labored respirations, SPO2 96% on 2 LPM O2/NC. Pt has hx of Intrahepatic Bile Duct Carcinoma and has drainage tubes to upper right chest and upper mid abdomen. Tubes patent and secure with dressings clean, dry and intact. Right upper chest with 300 mL yellow-brown drainage to bag. Upper Mid Abdomen with 50 mL bilous drainage to bag. Reported to have Stage 2 bed sore to sacrum.
--- NOTE | 2019-08-23 19:30 | NUR ---
Dr. Dominguez at bedside.
--- NOTE | 2019-08-23 20:00 | NUR ---
Lab at bedside.
--- NOTE | 2019-08-23 20:02 | NUR ---
# 20 gauge angiocath placed to Left Wrist. Use of asceptic technique. Opsite placed over site. Blood return noted. Blood for lab drawn from site. Flushed with 10 cc of normal saline. No evidence of infiltration noted. Patient tolerated well.
--- NOTE | 2019-08-23 20:05 | NUR ---
Dr. Dominguez at bedside.
[2019-08-23] MEDS ORDERED: NACL 0.9% 1,000 ML IV ONE (20:16)
[2019-08-23 20:21] LABS: EOSINOPHILS # (AUTO) 0.6 K/uL (0.0-0.4); HEMATOCRIT 24.4 % (36-48); HEMOGLOBIN 7.6 g/dL (12.0-16.0); MEAN CORPUSCULAR HEMOGLOBIN 23 pg (27-31); RED CELL DISTRIBUTION WIDTH 19.5 % (9.0-15.0)
[2019-08-23 20:27] LABS: BASOPHILS # (AUTO) 0.1 K/uL (0.0-0.2); EOSINOPHILS % (AUTO) 4.3 % (0.0-4.0); LYMPHOCYTES # (AUTO) 2.8 K/uL (1.0-5.5); LYMPHOCYTES % (AUTO) 19.3 % (20.5-51.5); MEAN CORPUSCULAR HGB CONC 31 % (32-36); MEAN CORPUSCULAR VOLUME 72 fL (79.0-98.0); MONOCYTES # (AUTO) 1.2 K/uL (0.0-1.0); MONOCYTES % (AUTO) 7.9 % (1.7-9.3); NEUTROPHILS # (AUTO) 9.9 K/uL (1.8-7.7); RED BLOOD CELL COUNT(AUTO) 3.37 MIL/uL (4.2-6.2); WHITE BLOOD COUNT (AUTO) 14.7 K/uL (4.8-10.8)
--- NOTE | 2019-08-23 20:30 | NUR ---
Pt constantly states "I'm hungry." Pt provided with a [employer] sandwich, apple juice, and diced pairs. Pt consumes half of sandwich and pairs.
[2019-08-23 20:40] LABS: INR 1.2 (0.8-1.2); PROTHROMBIN TIME 12.4 SECS (9.5-12.5)
[2019-08-23 20:42] LABS: CALCIUM 7.5 mg/dL (8.4-11.0); CREATININE 0.36 mg/dL (0.55-1.30); NEUTROPHILS % (AUTO) 67.5 % (40.0-70.0); PLATELET COUNT (AUTO) 922 K/uL (130-430); POTASSIUM 3.1 mmol/L (3.5-5.1)
--- NOTE | 2019-08-23 20:45 | NUR ---
Pt states "I want to go to sleep." Pt positioned for comfort, pillow provided, light turned off. VSS, RAFFAELE.
[2019-08-23 20:47] LABS: ALBUMIN 1.4 g/dL (3.4-4.8); TOTAL BILIRUBIN 0.7 mg/dL (0.0-1.0)
--- NOTE | 2019-08-23 21:30 | NUR ---
Pt resting quietly, even and non-labored respirations, NAD.
[2019-08-23] MEDS ORDERED: POTASSIUM CHLORIDE 20 MEQ TAB.PRT.SR PO ONE (22:15)
--- NOTE | 2019-08-23 22:30 | NUR ---
Linens soiled with urine. Pt cleaned, linens changed, clean gown applied. Chucks and draw sheet placed to bed. Redness noted to sacrum and groin, skin intact. Several unsuccessful attempts to place In/Out cath. Specimen collected for stool, and sent to lab.Dr. Dominguez notified.
--- NOTE | 2019-08-23 23:30 | NUR ---
Pt now able to use bed ibanez. Urine specimen collected and sent to lab.
--- NOTE | 2019-08-24 00:50 | NUR ---
Pt unable to sign for blood transfusion. Form signed by myself and second RN. Pt's sister, Chayo Luu ([phone]) contacted to notify need of transfusion and she consents.
[2019-08-24 00:53] LABS: BILIRUBIN,URINE NEGATIVE (NEGATIVE); CLARITY/URINE SL CLOUDY (CLEAR); COLOR,URINE YELLOW (YELLOW); GLUCOSE,URINE NEGATIVE (NEGATIVE); KETONES,URINE NEGATIVE (NEGATIVE); LEUKOCYTE ESTERASE ,URINE TRACE (NEGATIVE); NITRITE, URINE NEGATIVE (NEGATIVE); PROTEIN URINE NEGATIVE (NEGATIVE); UROBILINOGEN,URINE 0.2 (0.2-1.0)
[2019-08-24 00:57] LABS: BLOOD, URINE TRACE (NEGATIVE)
[2019-08-24 01:08] LABS: BACTERIA,URINE FEW /HPF (None Seen)
[2019-08-24] MEDS ORDERED: PIPERACILLIN/TAZOBACTAM 3.375 GM/VIAL (ZOSYN) IV ONE (01:45)
[2019-08-24] MEDS ORDERED: POTASSIUM CHLORIDE 20 MEQ TAB.PRT.SR ONE (01:47)
--- NOTE | 2019-08-24 01:50 | NUR ---
Patient will be admitted to care of Dr. Triana. Admitted to Tele unit. Will go to room 128A. Belongings list completed. Complete and up to date summary report printed. SBAR report to be given at bedside with opportunity for questions.
--- NOTE | 2019-08-24 02:25 | NUR ---
ADMISSION NOTE Received patient from ER via [facility], received report from INNA WOOD. Patient admitted with diagnosis of ANEMIA, LEUKOCYTOSIS, THROMBOCYTOPENIA, SEPSIS. Patient oriented to hospital routine, call light, toileting and safety-patient verbalized understanding.
[2019-08-24] MEDS: NACL 0.9% 1,000 ML IV SCH ×3 (02:30→20:35)
[2019-08-24 02:40] VITALS: BP_SYST 126
--- NOTE | 2019-08-24 03:00 | NUR ---
BT INITIATION (1st unit): Consent signed per patient's sister Chayo Luu agreeing to administration of blood. Blood has been type and crossmatched. Blood sent from blood bank. Information on unit of blood checked against patient wristband at bedside by two nurses. All information matches. Patient or responsible constitution party informed of potential complications associated with blood transfusion. Informed of possible transfusion reaction symptoms. Aware of need to notify nurse at once of itching, shortness of breath, flushing, feeling of impending doom, or other symptoms not previously present. Vital signs taken within 5 minutes prior to initiation of transfusion. RN will remain with patient for first 15 minutes of transfusion at which time vital signs will be re-assessed.
--- NOTE | 2019-08-24 03:26 | NUR ---
CONSULTATION PAGED/CALLED Reason for Consultation: ANEMIA Person Who was Notified: RICKY Consulting Physician: ALVA CASTANON IS SAW FEEDER Furniture Finisher Specialty: Ordering Physician: TARIQ
--- NOTE | 2019-08-24 03:29 | NUR ---
CONSULTATION PAGED/CALLED Reason for Consultation: VRE Person Who was Notified: RICKY Consulting Physician: Indy CRAIN Diesel Maintenance Technician Specialty:ID Ordering Physician: CARLOS
[2019-08-24] MEDS: PIPERACILLIN/TAZO 3.375 GM in NS 50 ML IV SCH ×3 (04:10→18:12)
--- NOTE | 2019-08-24 05:55 | NUR ---
BT COMPLETION (1st unit): Transfusion of 1st unit of PRBC's completed. Vital signs WNL, IV site benign and intact, no adverse effects. Will begin transfusion of 2nd unit PRBC's as ordered.
[2019-08-24] MEDS ORDERED: PIPERACILLIN/TAZO 3.375 GM in NS 50 ML IV SCH (06:00)
--- NOTE | 2019-08-24 06:10 | NUR ---
BT INITIATION (2nd unit): Consent signed per patient's sister Chayo Luu agreeing to administration of blood. Blood has been type and crossmatched. Blood sent from blood bank. Information on unit of blood checked against patient wristband at bedside by two nurses. All information matches. Patient or responsible republican informed of potential complications associated with blood transfusion. Informed of possible transfusion reaction symptoms. Aware of need to notify nurse at once of itching, shortness of breath, flushing, feeling of impending doom, or other symptoms not previously present. Vital signs taken within 5 minutes prior to initiation of transfusion. RN will remain with patient for first 15 minutes of transfusion at which time vital signs will be re-assessed.
[2019-08-24 08:00] VITALS: BP_SYST 150
--- NOTE | 2019-08-24 08:00 | NUR ---
AM ASSESSMENT. PT ALERT, ON BLOOD TRANSFUSION, IV SITE PATENT, INCONTINENT OF BLADDER, GOOD PERINEAL CARE RENDERED, SKIN CARE PROVIDED, DRAINS FROM THE ABDOMEN INTACT WITH YELLOWISH GREENISH COLOR. PT DENIES DISCOMFORTS.
--- NOTE | 2019-08-24 09:30 | NUR ---
BLOOD TRANSFUSION. TRANSFUSION COMPLETED WITHOUT PROBLEMS, VITAL SIGNS STABLE.
--- NOTE | 2019-08-24 09:45 | NUR ---
Nutrition Update Noel Scale 14 noted. Pt admitted for anemia, thrombocytopenia, leukocytosis, sepsis. Diet: [facility] BMI: 21.1 kg/m2 RD to follow per nutrition care standards.
[2019-08-24 13:08] VITALS: BP_SYST 153
[2019-08-24 13:37] LABS: CALCIUM 7.8 mg/dL (8.4-11.0); CREATININE 0.47 mg/dL (0.55-1.30); POTASSIUM 3.4 mmol/L (3.5-5.1)
[2019-08-24 13:41] LABS: MEAN CORPUSCULAR HEMOGLOBIN 24 pg (27-31); MEAN CORPUSCULAR HGB CONC 31 % (32-36); MEAN CORPUSCULAR VOLUME 78 fL (79.0-98.0); RED BLOOD CELL COUNT(AUTO) 4.49 MIL/uL (4.2-6.2); WHITE BLOOD COUNT (AUTO) 11.6 K/uL (4.8-10.8)
[2019-08-24 13:43] LABS: ALBUMIN 1.5 g/dL (3.4-4.8); TOTAL BILIRUBIN 1.1 mg/dL (0.0-1.0)
[2019-08-24 14:30] LABS: PLATELET COUNT (AUTO) 833 K/uL (130-430)
--- NOTE | 2019-08-24 14:45 | NUR ---
DC Planning: Per dr. Triana, planning to send pt back to snf once stable. The pt received 2 units PRBC yesterday. The discharge is pending UA and blood cultures. Plt:883, hgb after transfusion :11.
[2019-08-24 14:56] LABS: ATYPICAL LYMPHOCYTES % 2 % (0-0); BAND % (MANUAL) 2 % (0-6); BASOPHILS % (MANUAL) 0 % (0-2); EOSINOPHILS % (MANUAL) 2 % (0-7); LYMPHOCYTES % (MANUAL) 6 % (20-46); MONOCYTES % (MANUAL) 12 % (0-11)
[2019-08-24 16:12] VITALS: BP_SYST 148
--- NOTE | 2019-08-24 16:23 | NUR ---
Discharge Planning: DCP faxed referral to [facility] (f [phone] p [phone]) DCP to follow up
[2019-08-24] MEDS ORDERED: DIATR MEGLU/DIATRIZ SOD 30 ML SOLUTION PO ONE (16:59)
--- NOTE | 2019-08-24 17:00 | NUR ---
PO CONTRAST PT FOR CT SCAN OF THE ABDOMEN, ORAL CONTRAST WAS BROUGHT IN, SISTER (RHONA) AT BEDSIDE. PT STARTED DRINKING THE CONTRAST WHILE SISTER WATCHES HER.
--- NOTE | 2019-08-24 19:15 | NUR ---
OPENING NOTES Late entry due to patient care. Bedside report received from daysakft nurse. Patient received lying in bed, awake, family members at bedside. No s/s of acute distress noted. Breathing even and unlabored. HOB slightly raised. IVF infusing well. Drains draining by gravity. Skin warm and dry to touch. Call light with patient. Bed alarm on. Will continue to monitor.
[2019-08-24 20:00] VITALS: BP_SYST 135
--- NOTE | 2019-08-24 21:00 | NUR ---
ROUNDS Patient in bed sleeping. No signs of discomfort noted. Chest rise and fall even bilaterally. IVF infusing well. Call light with patient. Bed alarm on. Will continue to monitor.
--- NOTE | 2019-08-24 23:00 | NUR ---
ROUNDS Patient sleeping at this time. No s/s of acute distress noted. Breathing even and unlabored. IVF infusing well. Bed alarm on. Will continue to monitor.
[2019-08-25] VITALS: BP_SYST 136
--- NOTE | 2019-08-25 01:00 | NUR ---
ROUNDS Patient sleeping. No signs of discomfort noted. Chest rise and fall even bilaterally. IVF infusing well. Bed alarm on. Will continue to monitor.
[2019-08-25] MEDS: PIPERACILLIN/TAZO 3.375 GM in NS 50 ML IV SCH ×3 (01:40→17:24)
--- NOTE | 2019-08-25 03:00 | NUR ---
ROUNDS Patient in bed sleeping. No s/s of acute distress noted. IVF infusing. Bed alarm on. Will continue to monitor.
--- NOTE | 2019-08-25 05:00 | NUR ---
INCONTINENT CARE Patient cleaned by RN and SQUEAK RATTLE AND LEAK REPAIRER. Patient tolerated well. All needs met. Bed alarm on. Will continue to monitor.
[2019-08-25] MEDS: NACL 0.9% 1,000 ML IV SCH ×2 (05:37→17:26)
--- NOTE | 2019-08-25 06:14 | NUR ---
CLOSING NOTES Patient in bed sleeping at this time. No s/s of acute distress noted. Breathing even and unlabored. IVF infusing well, IV site patent, no signs of infiltration or infection noted. Drains attached, and draining by gravity. HOB slightly raised. All needs met throughout shift. Fall, safety, and isolation precautions maintained throughout shift. Will continue to monitor until patient care is endorsed to oncoming dayshift nurse.
[2019-08-25 06:54] LABS: BASOPHILS # (AUTO) 0.1 K/uL (0.0-0.2); BASOPHILS % (AUTO) 0.9 % (0.0-2.0); EOSINOPHILS # (AUTO) 0.8 K/uL (0.0-0.4); EOSINOPHILS % (AUTO) 7.1 % (0.0-4.0); HEMATOCRIT 31.8 % (36-48); HEMOGLOBIN 10.2 g/dL (12.0-16.0); LYMPHOCYTES # (AUTO) 2.1 K/uL (1.0-5.5); LYMPHOCYTES % (AUTO) 17.9 % (20.5-51.5); MEAN CORPUSCULAR HEMOGLOBIN 25 pg (27-31); MEAN CORPUSCULAR HGB CONC 32 % (32-36); MEAN CORPUSCULAR VOLUME 78 fL (79.0-98.0); MONOCYTES # (AUTO) 0.8 K/uL (0.0-1.0); MONOCYTES % (AUTO) 6.9 % (1.7-9.3); NEUTROPHILS # (AUTO) 7.8 K/uL (1.8-7.7); NEUTROPHILS % (AUTO) 67.2 % (40.0-70.0); RED BLOOD CELL COUNT(AUTO) 4.09 MIL/uL (4.2-6.2); RED CELL DISTRIBUTION WIDTH 21.1 % (9.0-15.0); WHITE BLOOD COUNT (AUTO) 11.5 K/uL (4.8-10.8)
--- NOTE | 2019-08-25 07:30 | NUR ---
ASSUMPTION OF CARE: RECEIVED PT A/A/CONFUSED, DX:RISK FOR HYPOVOLEMIA, R/T ANEMIA, LEUKOCYTOSIS,SEPSIS, VSS, AFEBRILE, NO S/S OF DISTRESS, COLOR IS GOOD, SKIN IS WARM, DRY TO TOUCH, PULSES ARE PALPABLE, BREATH SOUNDS ARE CLEAR, BREATHING UNLABORED, ABDOMINAL DRAINS PRESENT TO RIGHT QUAD, DRAINING DARK YELLOWISH COLORED DRAINAGE IN SMALL AMOUNT, IV SITE INTACT, PATENT, NO REDNESS OR SWELLING, ORIENTED TO CALL LIGHT, PLACED WITHIN REACH, WILL CONT' TO MONITOR AND ASSESS.
[2019-08-25 07:41] LABS: PLATELET COUNT (AUTO) 764 K/uL (130-430)
[2019-08-25 07:46] LABS: INR 1.3 (0.8-1.2); PROTHROMBIN TIME 13.1 SECS (9.5-12.5)
--- NOTE | 2019-08-25 07:48 | NUR ---
LEONIE FERRO FOR CRITICAL LABS
[2019-08-25 08:00] VITALS: BP_SYST 133
[2019-08-25 08:02] LABS: CREATININE 0.48 mg/dL (0.55-1.30); POTASSIUM 3.2 mmol/L (3.5-5.1)
--- NOTE | 2019-08-25 09:43 | NUR ---
LEONIE CRAIN FOR CRITICAL LABS
--- NOTE | 2019-08-25 10:00 | NUR ---
ELECTRIC MOTOR REPAIRMAN: MORNING MED GIVEN, PER ORDERED BY Zay, TOLERATED WELL, WILL CONT' TO MONITOR AND ASSESS.
[2019-08-25] MEDS ORDERED: MUPIROCIN 2% TOPICAL OINTMENT 22 GM NS ONE (11:30)
--- NOTE | 2019-08-25 12:00 | NUR ---
NURSES NOTES: PT HAS LARGE BM, WAS CLEANED, LINEN CHANGED, REPOSITIONED FOR COMFORT, REORIENTED TO CALL LIGHT, PLACED WITHIN REACH, WILL CONT' TO MONITOR, WILL CONT' WITH POC.
[2019-08-25 12:03] VITALS: BP_SYST 141
--- NOTE | 2019-08-25 15:00 | NUR ---
NURSES NOTES: PT REMAINS STABLE, REPOSITIONED FOR COMFORT/SAFETY, NO SIGNIFICANT CHANGES NOTED, WILL CONT' TO MONITOR, CONT' WITH POC.
[2019-08-25 16:32] VITALS: BP_SYST 154
--- NOTE | 2019-08-25 18:00 | NUR ---
END OF SHIFT: PT HAS NO SIGNIFICANT CHANGES NOTED, NEEDS MET, RESTING IN POSITION OF COMFORT, WILL CONT WITH POC, WILL ENDORSE TO PEST CONTROL TECHNICIAN NURSE.
[2019-08-25 20:00] VITALS: BP_SYST 159
--- NOTE | 2019-08-25 20:00 | NUR ---
AWAKE, ALERT. COMPLIANT. CONFUSED AT TIMES. ON ROOM AIR. POX 95%. MID ABDOMINAL BILE DUCT T-TUBE TO DRAIN BAG X2 WITH GREENISH BROWN YELLOW DRAINAGE NOTED. INCONTINENT OF URINE. MALISSA SCD'S IN PLACE. ST W/ BBB IN TELE MONITOR. CONTACT ISOLATION OBSERVED.
[2019-08-25] MEDS: MUPIROCIN 2% TOPICAL OINTMENT 22 GM NS SCH (21:09)
--- NOTE | 2019-08-26 | NUR ---
HS CARE DONE. CLEANED. EMMANUEL CARE GIVEN. BACK CARE, SKIN CARE DONE. PARTIAL LINEN CHANGE. ASSISTS WITH TURNING. JOSE M PROC WELL.
[2019-08-26 00:25] VITALS: BP_SYST 126
[2019-08-26] MEDS: PIPERACILLIN/TAZO 3.375 GM in NS 50 ML IV SCH ×3 (01:51→17:41)
[2019-08-26] MEDS: NACL 0.9% 1,000 ML IV SCH ×3 (01:51→17:42)
--- NOTE | 2019-08-26 02:00 | NUR ---
SOUNDLY ASLEEP. NO DISTRESS NOTED.
--- NOTE | 2019-08-26 05:00 | NUR ---
SLEPT FOR LONG PERIODS OF TIME. AM CARE. EMMANUEL-CARE, BACK CARE SKIN CARE DONE. PARTIAL LINEN CHANGE. MINIMAL ASSIST WITH TURNING. JOSE M PROC WELL.
--- NOTE | 2019-08-26 06:00 | NUR ---
SLEPT WELL MOST OF NIGHT. ACCU-CHEK 81. REMAINS IN GUARDED CONDITION.
--- NOTE | 2019-08-26 07:30 | NUR ---
Opening Note Received plan of care vis sbar from endorsing nurse Jericho RN. Completed patient rounding. All safety measures met.
[2019-08-26 08:00] VITALS: BP_SYST 140
[2019-08-26] MEDS: MUPIROCIN 2% TOPICAL OINTMENT 22 GM NS SCH ×2 (10:27→22:13)
--- NOTE | 2019-08-26 11:30 | NUR ---
Dr. Triana at bedside. Received orders to get GT placement consent and CMP/CBC for morning draw.
[2019-08-26 12:24] VITALS: BP_SYST 132
--- NOTE | 2019-08-26 13:00 | NUR ---
Patient ate all of her soup, half of her pudding, her milk carton, and half of her prune juice. Patient did not want to eat her entree. Patient is AOx3 and not presenting any signs of distress. Patient now resting in bed. All safety measures met.
--- NOTE | 2019-08-26 14:28 | NUR ---
Dietitian Recommendations * Recommend [facility] diet w/ Glucamparo TID (ONS provides 660 kcal/day, 30 gm protein/day) DOUGLAS CRUZ Please refer to Nutrition Assessment for details. Addendum: 08/26/19 at [address] Amended: Links added.
[2019-08-26 16:16] VITALS: BP_SYST 151
--- NOTE | 2019-08-26 19:15 | NUR ---
OPENING NOTES Pt is AAOx2, lying in bed. Pt on IVF with NS at 125ml/hr and infusing well on left wrist G20. No complains of pain or discomfort at this time. No signs of acute distress or SOB noted. Encouraged to use call light when needed. Safety precautions in place with 3 side rails up, wheels locked, bed alarm on and in lowest level. Call light with pt. Will continue to monitor.
--- NOTE | 2019-08-26 19:41 | NUR ---
Closing Note Provided plan of care via sbar to receiving nurse. Completed patient round.
[2019-08-26 22:11] VITALS: BP_SYST 143
--- NOTE | 2019-08-26 22:13 | NUR ---
ROUNDS Due med given and pt tolerated well. No complains of pain and no signs of acute distress noted. IVF infusing well. Safety precautions in place and call light with pt. Will continue to monitor.
[2019-08-27 00:04] VITALS: BP_SYST 145
[2019-08-27] MEDS: NACL 0.9% 1,000 ML IV SCH ×4 (01:46→22:57)
[2019-08-27] MEDS: PIPERACILLIN/TAZO 3.375 GM in NS 50 ML IV SCH ×3 (01:46→17:14)
--- NOTE | 2019-08-27 02:12 | NUR ---
CALLED DR. TRIANA Called and left a voicemail to Dr. Triana regarding pt's tele monitor showing AV blocks.
--- NOTE | 2019-08-27 02:41 | NUR ---
SPOKE TO DR. TRIANA Spoke to Dr. Triana regarding pt showing AV block on her monitor and there's no cardiac consult for the pt. Dr. Triana ordered cardio consult to Robinson Abrams. Also told him pt is diabetic and there is no acchuchecks. He ordered accuchecks ACHS and Regular insulin sliding scale. Read back orders and will carry out.
--- NOTE | 2019-08-27 04:01 | NUR ---
ROUNDS Pt is resting in bed with both eyes closed, with visible chest rise and fall with non-labored breathing noted. Pt is easily arousable. IVF infusing well. No signs of acute distress. No needs at this time. Safety precautions in place and call light with pt. Will continue to monitor.
--- NOTE | 2019-08-27 04:09 | NUR ---
CONSULTATION PAGED/CALLED Reason for Consultation: ARRHYTHMIA Person Who was Notified: GALI Consulting Physician: JEANETTE IBANEZ Aviation Technical Systems Specialist Specialty: Ordering Physician:
[2019-08-27] MEDS: INSULIN REGULAR, HUMAN 100 UNITS/ML, 10 ML VIAL (humuLIN R) SUBCUT PRN ×2 (06:11→21:24)
--- NOTE | 2019-08-27 06:30 | NUR ---
CLOSING NOTES Pt is resting in bed with both eyes closed, with visible chest rise and fall with non-labored breathing noted. IVF infusing well. No complains of pain at this time. No signs of acute distress or SOB noted. All needs attended throughout the shift. Safety precautions maintained with 3 side rails up, wheels locked, bed alarm on and in lowest level. Call light with pt. Will endorse to day shift nurse.
[2019-08-27 06:37] LABS: BASOPHILS # (AUTO) 0.1 K/uL (0.0-0.2); BASOPHILS % (AUTO) 0.9 % (0.0-2.0); EOSINOPHILS % (AUTO) 8.2 % (0.0-4.0); HEMATOCRIT 31.7 % (36-48); HEMOGLOBIN 10.2 g/dL (12.0-16.0); LYMPHOCYTES # (AUTO) 2.3 K/uL (1.0-5.5); MEAN CORPUSCULAR HEMOGLOBIN 25 pg (27-31); MEAN CORPUSCULAR HGB CONC 32 % (32-36); MEAN CORPUSCULAR VOLUME 78 fL (79.0-98.0); MONOCYTES % (AUTO) 7.9 % (1.7-9.3); NEUTROPHILS # (AUTO) 7.7 K/uL (1.8-7.7); PLATELET COUNT (AUTO) 747 K/uL (130-430); RED CELL DISTRIBUTION WIDTH 21.9 % (9.0-15.0); WHITE BLOOD COUNT (AUTO) 12.1 K/uL (4.8-10.8)
[2019-08-27 07:22] LABS: ALBUMIN 1.4 g/dL (3.4-4.8); CALCIUM 7.7 mg/dL (8.4-11.0); CREATININE 0.41 mg/dL (0.55-1.30); TOTAL BILIRUBIN 1.5 mg/dL (0.0-1.0)
--- NOTE | 2019-08-27 07:30 | NUR ---
PAGESana FERRO FOR CRITICAL LAB; AWAITING FOR CALL BACK
[2019-08-27 07:33] LABS: POTASSIUM 2.6 mmol/L (3.5-5.1)
--- NOTE | 2019-08-27 07:50 | NUR ---
OPENING NOTE RECEIVED PATIENT FROM NOC SHIFT. PATIENT IS AWAKE AND ALERT IN BED. NO C/O PAIN. ROOM AIR. NO ACUTE DISTRESS. NO SOB. RESPIRATION EVEN AND UNLABORED. SKIN WARM AND DRY TO TOUCH. NOTED MID ABDOMINAL BILE DUCT T-TUBE TO DRAIN BAG X2 WITH GREENISH/BROWN DRAINAGE NOTED. IV INTACT AND PATENT; JOSE M IVF ORDERED. DISCUSSED PLAN OF CARE. BED IN LOW AND LOCKED POSITION. SIDERAIL UPX3. BED ALARM ON. CALL LIGHT IN REACH. CONT ON CONTACT PRECAUTIONS. CONT TO MONITOR
[2019-08-27] MEDS: MUPIROCIN 2% TOPICAL OINTMENT 22 GM NS SCH ×2 (08:56→21:23)
--- NOTE | 2019-08-27 09:00 | NUR ---
MEDS ALL DUE MEDS ADMINISTERED ORDERED, JOSE M WELL. TEACHING DONE ON MEDICATION AND ASE. ALL NEEDS MET. CALL LIGHT IN REACH. CONT TO MONITOR
--- NOTE | 2019-08-27 09:08 | NUR ---
/ATB SPOKE TO AND REPORTED HAS POSITIVE UA BUT IS NOT ON ANY ATB AT THIS TIME. PER HE WILL PUT IN ORDERS Addendum: 08/27/19 at 1532 by Eve Buchanan RN ERROR; WRONG PATIENT
--- NOTE | 2019-08-27 10:36 | NUR ---
REPORTED TO POTASSIUM IS 2.6 RECEIVED NEW ORDER FOR KCL 40MEQ PO X1 AND KRIDER 20MEQ IVPB X1; ORDER CLARIFIED, VERIFIED WITH MD AND CARRIED OUT.
[2019-08-27] MEDS ORDERED: POTASSIUM CHLORIDE 20 MEQ in NS 250 ML IV ONE (10:45)
[2019-08-27] MEDS ORDERED: POTASSIUM CHLORIDE 20 MEQ TAB.PRT.SR PO ONE (10:45)
--- NOTE | 2019-08-27 11:00 | NUR ---
NOTE PATIENT VOMIT X1 SMALL AMOUNT, CLEAR. LINEN AND GOWN CHANGED. HOB UP. ALL NEEDS MET. CONT TO MONITOR
--- NOTE | 2019-08-27 11:40 | NUR ---
BLOOD GLUCOSE 86 mg/dL WITH NO INSULIN COVERAGE NEEDED. TEACHING DONE ON DM. ALL NEEDS MET. CONT TO MONITOR
[2019-08-27 12:40] VITALS: BP_SYST 137
--- NOTE | 2019-08-27 13:30 | NUR ---
NOTE INCONTINENCE CARE PROVIDED. KEPT CLEAN AND DRY. CONT TO MONITOR. SISTER AT BEDSIDE
--- NOTE | 2019-08-27 15:00 | NUR ---
NOTE PATIENT AWAKE. SISTER AT BEDSIDE. KEPT CLEAN AND DRY. ALL NEEDS MET. CALL LIGHT IN REACH. CONT TO MONITOR
--- NOTE | 2019-08-27 16:29 | NUR ---
EKG DONE AT BEDSIDE. PATIENT STABLE. NO ACUTE DISTRESS. DENIES PAIN. KEPT CLEAN AND DRY. CONT TO MONITOR
--- NOTE | 2019-08-27 16:35 | NUR ---
DC Planning: s/w Jeff RUEDA for IN[facility] Praod, the pt had bed at [facility] , room # 106A , RN to report # [phone]. Eve is to call MD for discharge order if stable for discharge today. Jeff will help arrange the ambulance transfer. Thank you.
[2019-08-27 16:47] VITALS: BP_SYST 130
--- NOTE | 2019-08-27 17:42 | NUR ---
SPOKE TO DR. GONZALEZ AND REPORTED PATIENT HAS A BED AT [facility] BUT POTASSIUM WAS NOT RECHECKED YET. AND ALSO FAMILY WANTS PEG PLACEMENT PER ORDER BMP NOW AND CONSULT FOR PEG PLACEMENT; ORDER VERIFIED AND CARRIED OUT
--- NOTE | 2019-08-27 17:43 | NUR ---
CONSULTATION PAGED REASON FOR CONSULTATION:PEG PLACEMENT WAS CONSULT CALLED?Y PERSON WHO WAS NOTIFIED:AINSLEY CONSULTING PHYSICIAN:JOSIE ESTES (SHELL CHAUDHRY WET PRIMER POWDER BLENDER) PICK PULLING MACHINE OPERATOR SPECIALTY:GI PICK PULLING MACHINE OPERATOR PHONE NUMBER:[phone] REQUESTING PHYSICIAN:PATRICIA FERRO
--- NOTE | 2019-08-27 17:45 | NUR ---
BLOOD GLUCOSE 154 mg/dL WITH INSULIN HELD DUE TO PATIENT WITH DECREASED APPETITE AT THIS TIME. MADE AWARE. CONT TO MONITOR
--- NOTE | 2019-08-27 18:40 | NUR ---
CLOSING NOTE PATIENT AWAKE IN BED. STABLE. DENIES PAIN. NO ACUTE DISTRESS. ALL NEEDS MET. LABS DRAWN TO RECHECK POTASSIUM; AWAITING RESULTS. PAGED FOR PEG TUBE CONSULT; AWAITING FOR CALL BACK. CALL LIGHT IN REACH. CONT ON CONTACT PRECAUTION. WILL ENDORSE TO ONCOMING SHIFT.
[2019-08-27 18:49] LABS: CALCIUM 7.8 mg/dL (8.4-11.0); CREATININE 0.44 mg/dL (0.55-1.30); POTASSIUM 3.6 mmol/L (3.5-5.1)
--- NOTE | 2019-08-27 18:56 | NUR ---
SPOKE TO REGARDING PEG PLACEMENT; MD WILL SEE PATIENT TOMORROW
[2019-08-27 21:20] VITALS: BP_SYST 146
--- NOTE | 2019-08-27 23:30 | NUR ---
IV INSERTION Pt's IV was infiltrated, new IV inserted by INNA Em on left forearm G22, with good blood return and flushable with saline. Reconnected IVF and is infusing well. Will continue to monitor.
[2019-08-28 01:23] VITALS: BP_SYST 99
[2019-08-28] MEDS: PIPERACILLIN/TAZO 3.375 GM in NS 50 ML IV SCH ×3 (01:37→16:59)
--- NOTE | 2019-08-28 03:19 | NUR ---
ROUNDS Pt is resting in bed with both eyes closed, with visible chest rise and fall with non-labored breathing noted. Pt is easily arousable. No signs of acute distress or SOB noted. No needs at this time. IVF infusing well. Safety precautions in place and call light with pt. Will continue to monitor.
[2019-08-28] MEDS: INSULIN REGULAR, HUMAN 100 UNITS/ML, 10 ML VIAL (humuLIN R) SUBCUT PRN (06:20)
--- NOTE | 2019-08-28 07:21 | NUR ---
Opening Note received bedside SBAR report from operations supervisor 2nd shift RN, patient resting in bed, respirations even and unlabored on room air, no acute distress noted, educated patient on use of call light and asked to call for assistance, patient verbalized understanding, call light in reach, bed in low and locked position, bed alarm on.
[2019-08-28 08:00] VITALS: BP_SYST 141
[2019-08-28] MEDS: NACL 0.9% 1,000 ML IV SCH ×2 (08:30→16:59)
[2019-08-28] MEDS: MUPIROCIN 2% TOPICAL OINTMENT 22 GM NS SCH ×2 (08:30→22:10)
--- NOTE | 2019-08-28 08:45 | NUR ---
Breakfast Intake Orders to monitor patients caloric intake, patient ate one serving of Total cereal with fat free milk and one bite of a banana, patient refusing any more food at this time.
--- NOTE | 2019-08-28 09:40 | NUR ---
RN Rounds patient resting in bed, respirations even and unlabored on room air, no acute distress noted, patient denies any pain.
--- NOTE | 2019-08-28 11:55 | NUR ---
RN Rounds patient resting in bed, respirations even and unlabored on room air, patient denies any pain, IV fluid infusing well, no redness or swelling noted at IV site.
--- NOTE | 2019-08-28 12:30 | NUR ---
Lunch Intake patient had a few bites of pasta, approximately 10%, encouraged patient to take dietary supplement, patient refusing any more PO intake at this time.
[2019-08-28 12:50] VITALS: BP_SYST 151
--- NOTE | 2019-08-28 13:48 | NUR ---
RN Rounds patient resting in bed, respirations even and unlabored on room air, no acute distress noted, patient denies any pain.
--- NOTE | 2019-08-28 15:25 | NUR ---
RN Rounds patient resting in bed, respirations even and unlabored on room air, patient denies any pain.
[2019-08-28 16:11] VITALS: BP_SYST 155
--- NOTE | 2019-08-28 17:12 | NUR ---
Nutrition F/U RD reviewed pt's current EMR record including diet Hx, physician notes, nursing notes, pertinent labs/meds/procedures, care trends, and care activity. Admission Dx: Anemia, thrombocytopenia, leukocytosis, sepsis PMH: intraheptic bile duct carcinoma, DM, anemia, stage 2 decubitus ulcer, VTE, encephalopathy per physician notes Current Diet Order/Nutrition Support: CCHO diet w/ Glucerna TID x2 days Subjective Info: Pt seen resting in bed, reported good appetite. Pt stated she ate more than half of beef macaroni entree at lunch today. However, per RN notes, lunch intakes included only 10% of pasta, and pt refused Glucerna ONS. Evidence of 4 unopened bottles of Glucerna at bedside. RN also noted that pt ate 100% of Total cereal, 100% of 4 oz of fat-free milk, and a bite of banana. This equates to ~250 kcal and 12 gm protein so far today (RD used [employer] nutrition analysis software to calculate pt's caloric intakes), which is inadequate to meet pt's nutritional needs for the day. Pt requires increased encouragement during meal times to better meet nutritional requirements. Current % PO 25% x1 meal since ;ast RD visit 08/26/19 per EMR Estimated Energy Expenditure (kcals/day) 4202-7040 kcal/day (30-35 kcal/kg CBW for sepsis) Estimated Protein Required (g/day) 95-126 gm/day (1.5-2 gm/kg CBW for sepsis) Estimated Fluid Required (l/day) 1.9-2.2 L/day (1 ml/kcal/day for maintenance) Problem/Etiology/Signs/Symptoms Suboptimal nutritional intakes related to possible lack of appetite as evidenced by poor PO intake records. *ongoing Expected Outcomes/Goals - Monitor appetite and PO intakes w/ goal of pt meeting at least 75% of estimated nutritional needs, labs trending WNL, normal GI function, and skin integrity/wt maintenance Dietitian Recommendations * Recommend continuing [facility] diet w/ Glucerna TID (ONS provides 660 kcal/day, 30 gm protein/day) * Encourage increase PO intakes Follow Up High Risk: F/U in 2-3days
--- NOTE | 2019-08-28 17:20 | NUR ---
Dietitian Recommendations * [facility] (ONS provides 660 kcal/day, 30 gm protein/day) * Encourage increase PO intakes LP, RD Please refer to Nutrition F/U for details.
--- NOTE | 2019-08-28 17:22 | NUR ---
Calorie Count Analysis Pt stated she ate more than half of beef macaroni entree at lunch today. However, per RN notes, lunch intakes included only 10% of pasta, and pt refused Glucerna ONS. Evidence of 4 unopened bottles of Glucerna at bedside. RN also noted that pt ate 100% of Total cereal, 100% of 4 oz of fat-free milk, and a bite of banana. This equates to ~250 kcal and 12 gm protein so far today (RD used [employer]! nutrition analysis software to calculate pt's caloric intakes), which is inadequate to meet pt's nutritional needs for the day. Pt requires increased encouragement during meal times to better meet nutritional requirements.
--- NOTE | 2019-08-28 17:50 | NUR ---
Incontinent patient incontinent of urine, patient cleaned and assisted to reposition, tolerated well, no acute distress noted.
--- NOTE | 2019-08-28 17:59 | NUR ---
Nausea/Spoke with physician patient refusing to eat dinner, patient states "I'll throw up", encouraged patient to try glucerna supplement, patient states "Im full", RN asked patient if she was having any nausea, patient states "A little bit of nausea", called and spoke with Dr. Triana and informed him of patient complaint of nausea, new medication orders received, verified with telephone read back.
[2019-08-28] MEDS ORDERED: ONDANSETRON HCL 4 MG/2 ML VIAL IVP PRN (18:15)
--- NOTE | 2019-08-28 18:20 | NUR ---
Dinner Intake/Nausea educated patient on use and side effects of PRN zofran for nausea, patient verbalized understanding, patient requesting PRN zofran for nausea, patient tolerated medication administration well, no acute distress noted, patient states that she does not feel like eating, encouraged patient to try to eat again once zofran has taken effect and nausea has subsided, patient is agreeable and states that she will try to eat later, 0% of dinner eaten at this time.
[2019-08-28 19:09] LABS: ALBUMIN 1.7 g/dL (3.4-4.8); BILIRUBIN,DIRECT 2.9 mg/dL (0.0-0.3); TOTAL BILIRUBIN 3.4 mg/dL (0.0-1.0)
--- NOTE | 2019-08-28 19:24 | NUR ---
Closing Note bedside SBAR report given to receiving RN, patient resting in bed, respirations even and unlabored on room air, no acute distress noted, educated patient on use of call light and asked to call for assistance, patient verbalized understanding, call light in reach, bed in low and locked position, bed alarm on, care endorsed to applications instructor RN.
--- NOTE | 2019-08-28 19:30 | NUR ---
Opening notes Received report. Patient is resting in bed. No signs of distress noted. Breathing even and unlabored. IV patent and intact, infusing fluids. T-tubes x2 in place noted with greenish-yellow drainage. Encouraged patient to eat some snacks. Patient stated "I'm full! I ate already. I will eat breakfast." Call light with the patient. Safety precautions in place.
[2019-08-28 20:00] VITALS: BP_SYST 140
--- NOTE | 2019-08-28 22:37 | NUR ---
Accucheck 69 patient given 1 orange juice box with 2 sugars added. Blood sugar then went up to 79. Will continue to monitor.
[2019-08-29 00:30] VITALS: BP_SYST 136
--- NOTE | 2019-08-29 00:30 | NUR ---
Resting Patient resting in bed. No signs of distress noted. Breathing even and unlabored. IVF infusing well. No needs at this time. Call light with the patient. Safety precautions in place.
[2019-08-29] MEDS: NACL 0.9% 1,000 ML IV SCH (02:08)
[2019-08-29] MEDS: PIPERACILLIN/TAZO 3.375 GM in NS 50 ML IV SCH ×3 (02:08→16:55)
--- NOTE | 2019-08-29 02:30 | NUR ---
Sleeping No signs of distress noted. Breathing even and unlabored. IVF infusing well. No needs. Call light with the patient. Safety precautions in place.
--- NOTE | 2019-08-29 04:20 | NUR ---
Hygiene care Provided. Patient tolerated well. No signs of distress noted. Breathing even and unlabored. IVF infusing well. Call light with the patient. Safety precautions in place.
--- NOTE | 2019-08-29 06:56 | NUR ---
Closing notes Patient resting in bed. No signs of distress noted. Breathing even and unlabored. IV patent and intact, infusing fluids. Accucheck 72. Encouraged patient to eat breakfast. Patient states "I will at 8 o clock." T-tubes in place x2. All needs met throughout the shift. Call light with the patient. Safety precautions in place. will endorse care to day shift RN.
--- NOTE | 2019-08-29 07:20 | NUR ---
Opening Note received bedside SBAR report from shift nurse manager RN, patient resting in bed, respirations even and unlabored on room air, no acute distress noted, educated patient on use of call light and asked to call for assistance, patient verbalized understanding, call light in reach, bed in low and locked position, bed alarm on.
[2019-08-29 08:00] VITALS: BP_SYST 125
[2019-08-29] MEDS: MUPIROCIN 2% TOPICAL OINTMENT 22 GM NS SCH ×2 (08:51→21:11)
[2019-08-29] MEDS: D5NS 1,000 ML IV SCH ×2 (08:58→18:38)
--- NOTE | 2019-08-29 09:38 | NUR ---
Calorie Count Analysis RD printed out report of PO intake yesterday 08/28/2019 per MD & INNA Richmond's request. Calorie Count report was placed in hard chart. RD to continue to monitor PO intake. KRISTAN, RD
--- NOTE | 2019-08-29 09:48 | NUR ---
Breakfast Intake patient ate one serving of Total cereal with low fat milk, encouraged patient to increase PO intake, patient states "Im full", patient refusing any more PO intake at this time.
--- NOTE | 2019-08-29 11:23 | NUR ---
Incontinent patient incontinent of urine, patient cleaned and assisted to reposition, tolerated well, patient resting in bed.
--- NOTE | 2019-08-29 12:44 | NUR ---
Lunch Intake patient ate 10% beef roast, 50% chicken noodle soup, and 90% chocolate pudding, patient states "Im full" and is refusing any more PO intake.
[2019-08-29 12:47] VITALS: BP_SYST 141
--- NOTE | 2019-08-29 14:40 | NUR ---
RN Rounds patient resting in bed, respirations even and unlabored on room air, no acute distress noted, patient denies any pain or nausea.
--- NOTE | 2019-08-29 16:20 | NUR ---
Incontinent patient incontinent of urine, patient cleaned and linen changed, assisted patient to reposition, patient tolerated well.
[2019-08-29 16:30] VITALS: BP_SYST 154
--- NOTE | 2019-08-29 18:05 | NUR ---
Dinner Intake patient consumed 90% strawberry ensure, patient states "I'm full", patient refusing any more PO intake at this time.
--- NOTE | 2019-08-29 19:28 | NUR ---
Closing Note bedside SBAR report given to receiving RN, patient resting in bed, respirations even and unlabored on room air, patient denies any pain or nausea, no acute distress noted, educated patient on use of call light and asked to call for assistance, patient verbalized understanding, call light in reach, bed in low and locked position, bed alarm on, care endorsed to cage shift manager RN.
[2019-08-29 20:00] VITALS: BP_SYST 152
--- NOTE | 2019-08-29 22:39 | NUR ---
Patient in bed. No acute distress noted. Will continue to monitor.
[2019-08-30 00:27] VITALS: BP_SYST 141
[2019-08-30] MEDS: PIPERACILLIN/TAZO 3.375 GM in NS 50 ML IV SCH ×3 (02:58→17:19)
[2019-08-30] MEDS: D5NS 1,000 ML IV SCH ×2 (05:22→15:34)
--- NOTE | 2019-08-30 07:34 | NUR ---
Opening Note bedside SBAR report received from advertising assistant RN, patient resting in bed, respirations even and unlabored on room air, no acute distress noted, contact isolation precautions in place, educated patient on use of call light and asked to call for assistance, patient verbalized understanding, call light in reach, bed in low and locked position, bed alarm on.
[2019-08-30 08:00] VITALS: BP_SYST 137
--- NOTE | 2019-08-30 09:28 | NUR ---
Breakfast Intake patient ate 100% of cream of wheat, 120ml fat free milk, and 120ml orange juice.
[2019-08-30] MEDS: MUPIROCIN 2% TOPICAL OINTMENT 22 GM NS SCH (10:08)
--- NOTE | 2019-08-30 10:40 | NUR ---
Incontinent patient incontinent of urine, patient cleaned and linen changed, assisted patient to reposition, patient tolerated well.
--- NOTE | 2019-08-30 12:05 | NUR ---
Lunch Intake patient ate one bite of yellow and one bite of chicken, patient refusing any more PO intake.
[2019-08-30 12:59] VITALS: BP_SYST 142
--- NOTE | 2019-08-30 14:08 | NUR ---
Calorie Count Analysis RD printed out report of PO intake yesterday 08/29/2019 per MD & INNA Richmond's request. Calorie Count report was placed in hard chart. RD to continue to monitor PO intake. KRISTAN, RD
--- NOTE | 2019-08-30 14:15 | NUR ---
Incontinent patient incontinent of bladder, patient cleaned and assisted to reposition, tolerated well.
[2019-08-30 16:17] VITALS: BP_SYST 141
--- NOTE | 2019-08-30 16:50 | NUR ---
Incontinent patient incontinent of bladder, patient cleaned and assisted to reposition, tolerated well.
--- NOTE | 2019-08-30 18:25 | NUR ---
Dinner Intake patient had 50% ensure, patient refusing any additional PO intake.
--- NOTE | 2019-08-30 19:14 | NUR ---
Closing Note SBAR report given to Georgette RN, patient resting in bed, respirations even and unlabored on room air, no acute distress noted, educated patient on use of call light and asked to call for assistance, patient verbalized understanding, call light in reach, bed in low and locked position, bed alarm on, care endorsed to receiving RN.
[2019-08-30 20:00] VITALS: BP_SYST 123
--- NOTE | 2019-08-30 22:50 | NUR ---
Patient in bed. turned repositioned q2. No acute distress noted. Will continue to monitor.
[2019-08-31 00:09] VITALS: BP_SYST 132
[2019-08-31] MEDS: PIPERACILLIN/TAZO 3.375 GM in NS 50 ML IV SCH ×3 (01:45→17:07)
[2019-08-31] MEDS: D5NS 1,000 ML IV SCH ×3 (01:46→20:17)
--- NOTE | 2019-08-31 05:19 | NUR ---
CURRENT ASSESSMENT UNCHANGED. TURNED REPOSITIONED Q2. WILL CONTINUE TO MONITOR.
--- NOTE | 2019-08-31 08:00 | NUR ---
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 No SOB/resp distress or pain/discomfort noted at this time. Tele unit attached and intact at this time. IV in right hand intact and patent infusing IVF's well. No needs noted at this time. Call light within reach.
[2019-08-31 11:41] LABS: ALBUMIN 1.6 g/dL (3.4-4.8); TOTAL BILIRUBIN 3.6 mg/dL (0.0-1.0)
[2019-08-31 12:20] VITALS: BP_SYST 131
--- NOTE | 2019-08-31 13:00 | NUR ---
Note Pt tried to eat some of her CCHO diet. Pt ate some of her food and spit it out and vomited her Glucerna drink. Pt kept NPO at this time. No needs noted. Call light within reach.
--- NOTE | 2019-08-31 14:50 | NUR ---
Note Dr Lares on the floor and after assessment of pt, Dr Lares spoke to Dr Triana about pt and placement of G-tube/PEG placement. Pt resting in bed. Call light within reach.
--- NOTE | 2019-08-31 15:26 | NUR ---
Nutrition F/U RD reviewed pt's current EMR record including diet Hx, physician notes, nursing notes, pertinent labs/meds/procedures, care trends, and care activity. Admission Dx: Anemia, thrombocytopenia, leukocytosis, sepsis PMH: intrahepatic bile duct carcinoma, DM, anemia, stage 2 decubitus ulcer, VTE, encephalopathy per physician notes Current Diet Order/Nutrition Support: NPO x0 days Subjective Info: Pt has consistently not been meeting estimated nutritional needs -- calorie counts for 08/28-05/09 indicate very minimal PO intakes. Pt would better meet nutritional requirements via GT feeding. Possible plans for PEG placement per RN report. Pt spit out a lot of food today per RN report. Current % PO Negligible Estimated Energy Expenditure (kcals/day) 1515-0747 kcal/day (30-35 kcal/kg CBW for sepsis) Estimated Protein Required (g/day) 95-126 gm/day (1.5-2 gm/kg CBW for sepsis) Estimated Fluid Required (l/day) 1.9-2.2 L/day (1 ml/kcal/day for maintenance) Problem/Etiology/Signs/Symptoms Suboptimal nutritional intakes related to possible lack of appetite as evidenced by poor PO intake records. *ongoing Expected Outcomes/Goals - Monitor appetite and PO intakes w/ goal of pt meeting at least 75% of estimated nutritional needs, labs trending WNL, normal GI function, and skin integrity/wt maintenance Dietitian Recommendations * Consider PEG placement Follow Up High Risk: F/U in 2-3 days
--- NOTE | 2019-08-31 15:31 | NUR ---
Dietitian Recommendations * Consider PEG placement LP, RD Please refer to Nutrition F/U for details.
[2019-08-31] MEDS ORDERED: CEFAZOLIN 1 GM IVPB PREMIX 50 ML IV ONE (16:15)
[2019-08-31 16:32] VITALS: BP_SYST 142
--- NOTE | 2019-08-31 16:40 | NUR ---
Note Pt resting in bed. No needs noted at this time. IVF's infusing well through right hand IV site. Call light within reach.
--- NOTE | 2019-08-31 18:30 | NUR ---
Note Pt resting in bed, sister at bedside. IV in right hand intact and patent infusing IVF's well. Tele unit attached and intact all shift. Pt was checked on q1' and PRN all shift for needs and care. Pt was maintained with safety and isolation precautions all shift. No needs noted at this time. Middle and right side abdominal drains intact and draining at this time. Call light within reach.
--- NOTE | 2019-08-31 19:30 | NUR ---
initial notes received report from offgoing nurse at the bedside. patient is awake and alert, resting comfortably in bed. sister (duyen) is at the bedside. ivf infusing per md order, see emar for details. bed is locked, lowest position, 2x side rails up, bed alarm is on. call light is within reach. will continue with plan of care.
[2019-08-31 20:00] VITALS: BP_SYST 152
[2019-08-31] MEDS: INSULIN REGULAR, HUMAN 100 UNITS/ML, 10 ML VIAL (humuLIN R) SUBCUT PRN (20:17)
--- NOTE | 2019-08-31 20:30 | NUR ---
patient had BM in the bedpan. Brown, firm and formed. Provided skin care as needed. Call light within reach. Encouraged patient to call for assistance.
--- NOTE | 2019-08-31 22:51 | NUR ---
duyen (sister) [phone] stated for MD to call her before the procedure to receive consent. Duyen would like the MD to explain the procedure to her prior to consent.
[2019-09-01 00:15] VITALS: BP_SYST 153
[2019-09-01] MEDS: PIPERACILLIN/TAZO 3.375 GM in NS 50 ML IV SCH ×3 (01:47→17:12)
--- NOTE | 2019-09-01 02:07 | NUR ---
PATIENT RESTING COMFORTABLY IN BED, EYES CLOSED. EASILY AROUSED TO TOUCH. NO SOB, NO ACUTE DISTRESS, NO SIGNS OF PAIN OR FACIAL GRIMACING NOTED. BED IS LOCKED, LOWEST POSITION, 2X SIDE RAILS UP, BED ALARM IS ON. CALL LIGHT IS WITHIN REACH. ENCOURAGED PATIENT TO CALL FOR ASSISTANCE.
--- NOTE | 2019-09-01 04:30 | NUR ---
Patient had an episode of urinary incontinence. Provided incontinence care as needed. Now clean and dry, resting comfortably in bed.
[2019-09-01] MEDS: D5NS 1,000 ML IV SCH ×2 (06:15→17:11)
[2019-09-01 06:31] LABS: INR 1.5 (0.8-1.2); PROTHROMBIN TIME 15.5 SECS (9.5-12.5)
--- NOTE | 2019-09-01 07:22 | NUR ---
Closing Notes Handoff report given to oncoming dayshift nurse. Patient is AAOx4, resting comfortably in bed. No SOB, no acute distress, no complaints of pain. Bed is locked, lowest position, 2x side rails up, bed alarm is on. Call light is within reach. Fall and safety precautions maintained. All needs have been met during this shift.
--- NOTE | 2019-09-01 08:00 | NUR ---
Note Pt resting in bed with tele unit attached and intact at this time. No SOB/resp distress or pain/discomfort noted at this time. IV in right hand intact and patent infusing IVF's well. Pt has been NPO since midnight for placement of GT for feedings. No needs noted. Call light within reach.
[2019-09-01 08:01] VITALS: BP_SYST 155
--- NOTE | 2019-09-01 11:30 | NUR ---
Note GI lab was called for time for GT placement, no time has been scheduled at this time. Pt and her sister were notified. Pt denies any needs at this time. Call light within reach. Pt has been maintained with isolation precautions all shift for hx. of VRE in urine. Call light within reach.
--- NOTE | 2019-09-01 12:11 | NUR ---
Note GI lab called and said stated GT placement will happen around 2pm. Pt and her sister Chayo were notified.
--- NOTE | 2019-09-01 12:20 | NUR ---
Note GI RN came to room and took pt down to GI lab for GT placement at this time, via bed.
[2019-09-01 12:52] VITALS: BP_SYST 152
[2019-09-01] MEDS: fentaNYL CITRATE/PF 100 MCG/2 ML AMP ONE ×2 (13:09→13:14)
[2019-09-01] MEDS: MIDAZOLAM HCL 5 MG/5 ML VIAL ONE ×3 (13:09→13:23)
--- NOTE | 2019-09-01 14:15 | NUR ---
Note Pt back in room from GI lab. GT placed and pt has abdominal binder on at this time. Pt's 2 drains from right abdominal site intact and draining. Pt to start GT feedings at 2215 - (in 8 hours) Jevity at 30cc/hr, increase by 10cc/q12' - goal of 60cc/hr. Check for residue q12', if residue 100cc, stop feedings for an hour and recheck. Pt stable, no SOB/resp distress or pain/discomfort noted at this time. Call light within reach.
[2019-09-01 16:13] VITALS: BP_SYST 168
--- NOTE | 2019-09-01 16:50 | NUR ---
Note Pt was checked on - hygiene care and partial bed bath given at this time by CORE SETTER, done q1' and PRN. Pr denies any needs at this time. No pain/discomfort noted at this time. Call light within reach.
--- NOTE | 2019-09-01 18:20 | NUR ---
Note Pt resting in bed with abdominal binder on all shift (since GT placement). No needs noted at this time. IV in right hand intact and patent infusing iVF's well. Tele unit attached and intact all shift. Pt was checked on q1' and PRN all shift for needs and care. Drains on right side of abdomen intact and draining. Call light within reach.
--- NOTE | 2019-09-01 19:30 | NUR ---
INITIAL NOTES RECEIVED HANDOFF REPORT FROM OFFGOING NURSE AT THE BEDSIDE. PATIENT IS AAOX4, RESTING COMFORTABLY IN BED. NO SOB, NO ACUTE DISTRESS, NO COMPLAINTS OF PAIN AT THIS TIME. BED IS LOCKED, LOWEST POSITION, 2X SIDE RAILS UP, BED ALARM IS ON. CALL LIGHT IS WITHIN REACH. RECEIVED IN ENDORSEMENT TO START TUBE FEEDING FORMULA AT 22:15 PER MD ORDER. WILL CONTINUE WITH PLAN OF CARE.
[2019-09-01 20:00] VITALS: BP_SYST 148
--- NOTE | 2019-09-01 21:00 | NUR ---
PATIENT RESTING COMFORTABLY IN BED, AWAKE AND ALERT. NO SOB, NO ACUTE DISTRESS, NO COMPLAINTS OF PAIN AT THIS TIME. PROVIDED PERICARE AND SKIN CARE NEEDED. ENCOURAGED PATIENT TO CALL FOR ASSISTANCE.
--- NOTE | 2019-09-01 22:36 | NUR ---
CHECKED TUBE FEEDING RESIDUAL, 0ML. STARTED TUBE FEEDING AT 30ML/HR PER MD ORDER.
--- NOTE | 2019-09-02 00:15 | NUR ---
INCONTINENCE CARE PROVIDED TO THE PATIENT NEEDED. PATIENT IS NOW CLEAN AND DRY, RESTING COMFORTABLY IN BED.
[2019-09-02] MEDS: PIPERACILLIN/TAZO 3.375 GM in NS 50 ML IV SCH ×3 (01:13→16:46)
[2019-09-02 02:17] VITALS: BP_SYST 141
--- NOTE | 2019-09-02 02:30 | NUR ---
CHECKED THE RESIDUALS IN THE GTUBE. 0ML RESIDUALS. GTUBE FEEDING STILL CONTINUING PER MD ORDER.
--- NOTE | 2019-09-02 05:00 | NUR ---
PATIENT RESTING COMFORTABLY IN BED. EYES CLOSED. BREATHING EVEN AND UNLABORED. VISIBLE CHEST RISE AND FALL NOTED. GTUBE INFUSING PER MD ORDER. IVF INFUSING PER MD ORDER, SEE EMAR. NO SIGNS OF PAIN OR DISTRESS AT THIS TIME.
--- NOTE | 2019-09-02 06:39 | NUR ---
CLOSING NOTES PATIENT IS RESTING COMFORTABLY IN BED, AWAKE AND ALERT. NO SOB, NO ACUTE DISTRESS, NO COMPLAINTS OF PAIN. IV SITE INTACT, DRESSING CLEAN AND DRY, IVF INFUSING PER MD ORDER. GTUBE INFUSING PER MD ORDER AT 30ML/HR. WILL ENDORSE TO DAYSHIFT TO INCREASE BY 10ML/HR AT 10:20 PER MD ORDER. BED IS LOCKED, LOWEST POSITION, 2X SIDE RAILS UP, BED ALARM IS ON. CALL LIGHT IS WITHIN REACH. FALL AND SAFETY PRECAUTIONS MAINTAINED. ALL NEEDS HAVE BEEN MET AT THIS TIME. WILL ENDORSE CARE TO ONCOMING DAYSHIFT NURSE.
--- NOTE | 2019-09-02 07:35 | NUR ---
AM ROUNDS: PATIENT AWAKE DURING ROUNDS.AOX4. 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 TUBE FEEDS ON GOING,WITH ABDOMINAL BINDER ON.BILIARY DRAINAGE X2,WITH YELLOWISH/GREENISH COLOR IN THE BAG. BILATERAL SCD,S ON LE.CALL LIGHT WITH IN REACH.BED LOCKED AT LOWEST POSITION. BED ALARM ON.CONDITION GUARDED.
[2019-09-02 08:30] VITALS: BP_SYST 133
[2019-09-02] MEDS ORDERED: LANSOPRAZOLE 30 MG CAPSULE.DR GT SCH (09:00)
--- NOTE | 2019-09-02 09:00 | NUR ---
MEDS/GTUBE: CRUSHED MEDS GIVEN GTUBE. TOLERATED WELL.NO PROBLEM.
[2019-09-02] MEDS: D5NS 1,000 ML IV SCH (09:38)
--- NOTE | 2019-09-02 10:00 | NUR ---
IV ANTIBIOTICS: DUE IV ZOSYN GIVEN SCHEDULED.INCREASED TUBE FEEDS TO 4OCC/H,AN INCREMENT OF 10CC EVERY 12HOURS ORDERED,GOAL TO 60CC.
--- NOTE | 2019-09-02 11:11 | NUR ---
Discharge Planning: DCP faxed patient referral to [facility] (f [phone] p [phone]) DCP to follow up Addendum: 09/02/19 at 1450 by Belen Hackett DP Dian from [facility] (f [phone] p [phone]) accepted pt to Rm 110A, DCP arranged transportation with [facility] ([phone]) 5:30pm P/U. Nurse made aware patient packet taken to nurse station.
--- NOTE | 2019-09-02 11:17 | NUR ---
BLOOD SUGAR: BLOOD SUGAR TAKEN,NO INSULIN NEEDED THIS TIME PER SLIDING SCALE.
[2019-09-02 12:00] VITALS: BP_SYST 138
--- NOTE | 2019-09-02 13:28 | NUR ---
DC PLANNING Order to dc back to SNF. Called & spoke with sister Chayo, ph [phone], informed of order. Agreeable w dc back to [facility], pt fdc care there, today. Explained Medicare IM Letter & gave ph# over the phone, verbalized understanding. No Choice Letter needed, pt fdc care @ [facility] & family wants pt to return there.
[2019-09-02 16:00] VITALS: BP_SYST 152
[2019-09-02 16:10] VITALS: BP_SYST 132
--- NOTE | 2019-09-02 17:00 | NUR ---
BLOOD SUGAR: BLOOD SUGAR TAKEN,NO INSULIN NEEDED THIS TIME PER SLIDING SCALE.
--- NOTE | 2019-09-02 17:21 | NUR ---
REPORT: REPORT GIVEN TO ADA Putnam RN FROM [facility].
--- NOTE | 2019-09-02 19:10 | NUR ---
END OF SHIFT: ENDORSED TO NIGHT NURSE ANTHONY.PATIENT WILL BE TRANSFERRED TONIGHT TO [facility] ORDERED.AMBULANCE RUNNING LATE . NO ACUTE DISTRESS.
--- NOTE | 2019-09-02 19:22 | NUR ---
NOTES PATIENT TRANSFERRED TO [facility] ORDERED VIA AMBULANCE WITH STABLE VITAL SIGNS. DISCHARGE PACKET AND REPORT TO [facility] RN DONE BY A.M. SHIFT NURSE. ALL NEEDS ATTENDED TO.
== END 2019-09-02 19:22 | DRG 871 ==
LOC: SED 19:18 → STU 08-24 00:17
PROVIDERS: ADMIT Internal Medicine; ATTEND Internal Medicine
PROC: 30233N1 Transfusion of Nonautologous Red Blood Cells into Peripheral Vein, Percutaneous Approach (ICD-10-PCS; principal; 2019-08-24)
PROC: 0DJ08ZZ Inspection of Upper Intestinal Tract, Via Natural or Artificial Opening Endoscopic (ICD-10-PCS; 2019-09-01)
DX: A41.9 Sepsis, unspecified organism (principal); G93.41 Metabolic encephalopathy; C22.1 Intrahepatic bile duct carcinoma; K83.09 Other cholangitis; F20.0 Paranoid schizophrenia; D69.6 Thrombocytopenia, unspecified; E87.6 Hypokalemia; R13.10 Dysphagia, unspecified; E11.9 Type 2 diabetes mellitus without complications; D50.9 Iron deficiency anemia, unspecified; L89.92 Pressure ulcer of unspecified site, stage 2; E78.5 Hyperlipidemia, unspecified; I10 Essential (primary) hypertension; K20.9 Esophagitis, unspecified; Z85.09 Personal history of malignant neoplasm of other digestive organs; Z74.01 Bed confinement status; Z88.8 Allergy status to other drugs, medicaments and biological substances; Z79.899 Other long term (current) drug therapy
CPT/HCPCS: 36415; 43246; 71045; 80048; 80053; 80076; 81000-TC; 82272; 82962; 83605; 85007; 85025; 85027; 85610-TC; 85730-TC; 86886; 86900; 86901; 86920; 87040-TC; 87081; 87086; 93005; 96360; 96361; 99285; G0378; J0690; J1815; J2250; J2405; J2543; J3010; J3480; J7030; J7040; J7042; J7050; P9021; Q9964